=== PATIENT | male | born 1950 | race Caucasian/White ===

== ENCOUNTER → 2016-08-13 | Outpatient (CLI) | payer MEDICARE, BC ==
--- NOTE | 2016-08-13 13:40 | XR ---
EXAMINATION TYPE: XR chest 2V DATE OF EXAM: 08/13/2016 1:25 PM COMPARISON: NONE HISTORY: Shortness of breath TECHNIQUE: Frontal and lateral views of the chest are obtained. FINDINGS: Scattered senescent parenchymal changes noted. Hyperinflation compatible with COPD. There is increased density right medial lung base which may reflect developing infiltrate. Correlate clinically and progress studies are recommended. Heart size is stable. Mediastinal structures are stable and grossly unremarkable. No evidence for hilar prominence. Degenerative changes dorsal spine. IMPRESSION: 1. There is increased density right medial lung base which may reflect developing infiltrate. Correla te clinically and progress studies are recommended.
--- NOTE | 2016-08-13 13:43 | XR ---
EXAMINATION TYPE: XR shoulder complete LT DATE OF EXAM: 08/13/2016 1:25 PM CLINICAL HISTORY: pain COMPARISON: NONE TECHNIQUE: Three views of the left shoulder are obtained. FINDINGS: There is no acute fracture/dislocation evident. The acromioclavicular and glenohumeral kalpana int spaces appear mildly narrowed. The visualized ribs are intact and unremarkable. IMPRESSION: 1. There is no acute fracture or dislocation. ICD 10 NO FRACTURE, INITIAL EVALUATION
--- NOTE | 2016-08-13 13:44 | XR ---
EXAMINATION TYPE: XR cervical spine comp DATE OF EXAM: 08/13/2016 1:25 PM CLINICAL HISTORY: pain COMPARISON: NONE TECHNIQUE: Frontal, lateral, oblique, swimmers, and open mouth view of the cervical spine are obtaine d. FINDINGS: The cervical spine is visualized in its entirety from C1 thru the top of T1 level. It is s atisfactory in alignment without evidence of acute fracture or dislocation. The pre-vertebral soft t issue appears within normal limits. Moderate to severe degenerative disc space narrowing and spondylo sis extending from C4-5 through C6-7. Mild bilateral foraminal encroachment at C5-6. The C1-C2 articu lation is unremarkable on the open mouth view. IMPRESSION: No acute fracture or dislocation is seen in the cervical spine.ICD 10 NO FRACTURE, INITI AL EVALUATION
== END | disposition home or self-care (01) ==
LOC: RADXRMAIN 12:52
PROVIDERS: ATTEND Nurse Practitioner Family
DX: M54.2 Cervicalgia (principal); M25.512 Pain in left shoulder; R91.8 Other nonspecific abnormal finding of lung field
CPT/HCPCS: 71020; 72050

== ENCOUNTER → 2016-09-10 | Outpatient (CLI) | payer MEDICARE, BC ==
--- NOTE | 2016-09-11 00:13 | MR ---
EXAMINATION TYPE: MR cervical spine wo con DATE OF EXAM: 09/10/2016 8:31 PM COMPARISON: NONE HISTORY: Stenosis, Neck Pain, Lt shoulder pain TECHNIQUE: Multiplanar, multisequence images of the cervical spine were acquired. Findings Cervical vertebra show fairly normal alignment. There is narrowing at the C6-7 disc space with anteri or spurring. There is narrowing of C5-6 disc space with anterior and posterior cervical disc herniati on. There is only mild impingement on the spinal canal at C5-6. There is a small posterior see 4 [address] bulge and herniation. Cervical spinal cord has normal signal pattern. There is no evidence of tae a. There is some impingement on the right-sided neural foramen at C5-6. There is no paraspinal mass. The brainstem appears normal. IMPRESSION: There is mild to moderate posterior central and right-sided C5-6 cervical disc herniation. There is r ight-sided C5-6 neural foraminal impingement. No evidence of cord edema. Small posterior C4-5 disc bu lge. No fracture.
== END | disposition home or self-care (01) ==
LOC: RADMRIMAIN 19:30
PROVIDERS: ATTEND Neurological Surgery
DX: M99.71 Connective tissue and disc stenosis of intervertebral foramina of cervical region (principal); M50.221 Other cervical disc displacement at C4-C5 level
CPT/HCPCS: 72141

== ENCOUNTER → 2016-09-10 | Outpatient (CLI) | payer MEDICARE, BC ==
--- NOTE | 2016-09-11 00:25 | MR ---
EXAMINATION TYPE: MR shoulder LT wo con DATE OF EXAM: 09/10/2016 8:40 PM COMPARISON: NONE HISTORY: Neck Pain, Lt shoulder pain TECHNIQUE: Multiplanar, multisequence imaging of the shoulder is performed without contrast. FINDINGS: There is a shoulder joint effusion. The subscapularis tendon is intact. There is some thinning of the biceps tendon. There is mild thickening of the supraspinatus tendon at the greater tuberosity of the humerus. There is no retraction. There is spurring at the AC joint. I see no subacromial impingement at the AC joint. There is mild narrowing of the subacromial joint space. There is spurring of the gl enoid eleonora. There is mild spurring of the humeral head. I see no fracture. I see no glenoid labral t ear. IMPRESSION: There is a shoulder joint effusion. Biceps tendon is not well defined in there may be at least a part ial tear. There is thickening and increased signal in the supraspinatus tendon over the humeral head at the gre ater tuberosity consistent with tendinitis and intrasubstance tear. No retraction. Mild osteoarthriti s in the glenohumeral joint. Mild osteoarthritis at the AC joint. There are small degenerative cysts in the greater tuberosity of the humerus.
== END | disposition home or self-care (01) ==
LOC: RADMRIMAIN 19:37
PROVIDERS: ATTEND Orthopaedic Surgery
DX: M19.012 Primary osteoarthritis, left shoulder (principal); M25.812 Other specified joint disorders, left shoulder

== ENCOUNTER → 2016-09-21 | Outpatient (CLI) | payer MEDICARE, BC ==
[2016-09-21 10:04] LABS: Anisocytosis Slight; Basophils % (A) 1 %; CH 27.3; CHCM 31.6; Eosinophils # (A) 0.1 k/uL (0-0.7); Eosinophils % (A) 3 %; HCT 41.2 % (39.0-53.0); HDW 2.37; HGB 12.7 gm/dL (13.0-17.5); Luc # (Auto) 0.09; Luc % (Auto) 2; Lymphocytes # (A) 1.1 k/uL (1.0-4.8); Lymphocytes % (A) 23 %; MCH 26.8 pg (25.0-35.0); MCHC 30.9 g/dL (31.0-37.0); Mean Platelet Volume 10.9; Monocytes # (A) 0.3 k/uL (0-1.0); Monocytes % (A) 6 %; Neutrophils # (A) 3.1 k/uL (1.3-7.7); Neutrophils % (A) 66 %; RBC 4.74 m/uL (4.30-5.90); WBC 4.8 k/uL (3.8-10.6); WBC (Perox) 4.89
[2016-09-21 10:14] LABS: Carbon Dioxide 26 mmol/L (22-30); Chloride 109 mmol/L (98-107); Glucose 91 mg/dL (74-99); Sodium 145 mmol/L (137-145)
[2016-09-21 10:15] LABS: ALT 31 U/L (21-72); AST 22 U/L (17-59); Alkaline Phosphatase 68 U/L (38-126); Anion Gap 10 mmol/L; Blood Urea Nitrogen 26 mg/dL (9-20); Calcium 10.1 mg/dL (8.4-10.2); Non-African American GFR(MDRD) >60 (>60 ml/min/1.73 sqM); Total Bilirubin 0.5 mg/dL (0.2-1.3); Total Protein 7.1 g/dL (6.3-8.2)
[2016-09-21 10:16] LABS: INR 1.1 (<1.1); Partial Thromboplastin Time 25.3 sec (22.0-30.0); Prothrombin Time 11.1 sec (9.0-12.0)
== END | disposition home or self-care (01) ==
LOC: LABPAT 08:51
PROVIDERS: ATTEND Nurse Practitioner Women's Health
DX: Z01.812 Encounter for preprocedural laboratory examination (principal)
CPT/HCPCS: 80053; 85025; 85610; 85730

== ENCOUNTER 2016-10-01 06:25 | Day surgery (SDC) | payer MEDICARE, BC ==
[2016-09-28 15:33] VITALS: BMI 38.8
--- NOTE | 2016-09-30 11:24 | HP ---
DATE OF ADMISSION: CHIEF COMPLAINT: Left shoulder pain. HISTORY OF PRESENT ILLNESS: The patient is a 66-year-old, right-hand dominant, retired gentleman who presents with left shoulder pain after an injury on August 04, 2016. He has persistent pain with overhead use and at night. He has tried therapy in addition to medications with only partial temporary relief. He notes he is significantly limited because of pain. PAST MEDICAL HISTORY: Significant for diabetes, reflux disease, hypercholesterolemia and testicular cancer. PAST SURGICAL HISTORY: Significant for previous spine and neck surgery in addition to testicular cancer surgery. CURRENT MEDICATIONS: 1. Actos. 2. Aspirin. 3. Atorvastatin. 4. Flomax. 5. Lisinopril. 6. Lyrica. 7. Metformin. 8. Naprosyn. 9. Prilosec. 10. Ciprofloxacin. He denies drug allergies. FAMILY HISTORY: Significant for cancer and diabetes. SOCIAL HISTORY: Negative for current tobacco or alcohol use. A 16-point review of systems otherwise reviewed and is noncontributory. On examination, the patient is approximately 5 foot 10, 258 pounds of endomorphic habitus. HEENT exam is nonfocal. Neck is supple. On examination of his left shoulder, he is tender about the anterior subacromial space. He has moderate subacromial crepitus. Active range of motion, forward elevation 70 degrees, external rotation with arm at the side 50 degrees, internal rotation to L4. Passively, I am able to forward elevate him to 160 degrees. Motor strength is 4+/5 for external rotation with arms at side and 4+/5 for abduction. Impingement test, Neer test, speed tests are positive. His distal neurovascular exam otherwise appears be intact in the left upper extremity. MRI report for the left shoulder from 09/10/2016 shows a large effusion in addition to possible partial biceps rupture. There is also a questionable anterior supraspinatus tendon tear. IMPRESSION: 1. Left shoulder symptomatic rotator cuff tear/impingement. 2. Partial tear left shoulder longhead of the biceps. 3. Diabetes. RECOMMENDATION: I talked to the patient at length regarding his treatment options. At this point he is quite symptomatic despite conservative measures. After thorough discussion, he opts to proceed with surgery. We will plan to proceed with arthroscopic evaluation with probable subacromial decompression, rotator cuff repair versus debridement, and possible biceps tenotomy. We will likely perform that as an outpatient procedure. The patient underwent preoperative medical evaluation by Dr. Macias.
[~2016-10-01 06:25] MED LIST: DEXAMETHASONE SOD PHOSPHATE 10 MG/ML 1 ML VIAL IV ONE; LACTATED RINGERS 1,000 ML IV SCH; MIDAZOLAM 2 MG/2 ML VIAL IV PRN; ONDANSETRON 4 MG/2 ML VIAL IVP ONE; ceFAZolin 2 GM in SODIUM CHLORIDE 0.9% 100 ML IVPB ONE; fentaNYL (PF) 50 MCG/ML 20 ML VIAL IVP PRN
[2016-10-01] MEDS ORDERED: LIDOCAINE 1% 20 ML VIAL (10MG/ML) FOR IV START INTRADERMA ONE (06:54)
[2016-10-01] MEDS ORDERED: fentaNYL (PF) 50 MCG/ML 2 ML AMP IV ONE (07:03)
[2016-10-01 07:04] LABS: Glucose,Whole Blood 101 mg/dL (75-99)
[2016-10-01] MEDS ORDERED: fentaNYL (PF) 50 MCG/ML 2 ML AMP ONE (08:08)
[2016-10-01] MEDS ORDERED: MIDAZOLAM 2 MG/2 ML VIAL ONE (08:08)
[2016-10-01] MEDS ORDERED: PROPOFOL 10 MG/ML 20 ML VIAL IV ONE (08:08)
[2016-10-01] MEDS ORDERED: LIDOCAINE 1% INJ 10MG/ML (20 ML MDV) ONE (08:08)
[2016-10-01] MEDS ORDERED: SUCCINYLCHOLINE CHLORIDE 100 MG/5 ML SYR IV ONE (08:08)
[2016-10-01] MEDS ORDERED: LIDOCAINE 2%-EPI 1:100,000 20 ML VIAL ONE (08:08)
[2016-10-01] MEDS ORDERED: ePHEDrine 50 MG/ML 1 ML AMP ONE (08:08)
[2016-10-01] MEDS ORDERED: ROPIVACAINE 5 MG/ML 30 ML VIAL ONE (08:08)
--- NOTE | 2016-10-01 09:30 | P.OP ---
Date of Procedure: 10/01/16 Preoperative Diagnosis: Left shoulder rotator cuff tear/impingement Postoperative Diagnosis: Left shoulder 1 cm rotator cuff tear/superior labral tear/posterior labral tear Procedure(s) Performed: Left shoulder arthroscopic subacromial decompression/rotator cuff repair/ superior labral debridement/posterior labral debridement Implants: Arthrex 5.5 mm swivel lock anchor 1 Anesthesia: luis [place] Surgeon: Pedro Luis Wyatt [employer] Maintenance Inspector #1: Nuno Choudhary Estimated Blood Loss (ml): 10 Pathology: none sent Condition: stable Disposition: PACU Indications for Procedure: Patient's a 66-year-old gentleman presents with progressive left shoulder pain after previous injury despite conservative measures. A discussion of the risks and benefits of operative intervention versus continued conservative measures was made with the patient. He opted to proceed with surgery. Operative risks to include infection, neurovascular injury, development of blood clots, possible postoperative stiffness, possible tendon rerupture need for subsequent procedures was discussed. Informed consent was obtained. Operative Findings: As below Description of Procedure: The patient was brought to the operating room, and after induction of general anesthesia was placed into a beachchair position. Bony prominences were appropriately padded. The left upper extremity was prepped and draped in normal fashion. I examined the left shoulder. There was no gross block to passive motion. The bony outlines the acromion, distal clavicle, and coracoid process were outlined with a skin marker. The glenohumeral joint was inflated with 50 mL of saline utilizing a spinal needle from posterior approach. A posterior portal was made through a 5 mm skin incision 1 cm medial and inferior to the posterior lateral border of the acromion. A blunt trocar was used to easily into the joint. Diagnostic arthroscopy was performed. An anterior portal was made through a 5 mm skin incision lateral to the coracoid process entering the joint above the subscapularis tendon. The long head of biceps appeared to have previously been ruptured off the superior labrum. There was a superior labral tear that was debrided back to stable base with a motorized shaver. A posterior labral tear was also noted and was debrided back to stable base with a motorized shaver. The anterior labrum was intact. Minimal degenerative changes involving the glenoid and humeral head were noted. On inspection the rotator cuff, a full-thickness tear involving the anterior aspect the supraspinatus tendon was noted with minimal retraction. The posterior portion the cuff appeared to be intact. The arthroscope was then placed into the subacromial space. A lateral portal was made through a 5 mm skin incision 2 cm inferior to the anterolateral border of the acromion. The soft tissue on the undersurface the acromion was debrided with motorized shaver and with electrocautery clearly defining the anterior medial and lateral borders. The distal clavicle was also identified. An anterior inferior acromioplasty is performed with a motorized nerissa starting anterolateral, then extending this posteriorly, then extending this medially. I converted to a flat acromion. This was verified from the posterior and lateral viewing portals. The coracoacromial ligament was detached from the anterior acromion with electrocautery. Attention was then paid towards the rotator cuff. The bursal tissue was hypertrophic and debrided with motorized shaver. The rotator cuff tear involving the anterior aspect the supraspinatus was defined. This measured proximal and 1 cm. There is no real retraction. It was easily mobilized back to the greater tuberosity. The greater tuberosity was lightly decorticated utilizing a motorized nerissa creating a bleeding bony surface for reattachment. A scorpion suture passer was then used to pass a #2 fiber tape through the rotator cuff in addition a #2 fiber length was placed. A lateral anchor was then placed after appropriate soft tissue tensioning utilizing the appropriate starting awl. A 5.5 mm swivel lock anchor was inserted. Good purchase was obtained. Final arthroscopic view showed adequate evangelical of the footprint with compression. The portals were closed with Steri-Strips. A sterile dressing was applied in addition to a brace. The patient was awoken from general anesthesia and transferred to the recovery room in good condition. Blood loss was estimated at 10 mL. No complications were incurred. Sponge and needle counts were correct at the end the case.
[2016-10-01 09:48] VITALS: TEMP 97.2
[2016-10-01 10:45] LABS: Glucose,Whole Blood 146 mg/dL (75-99)
[2016-10-01 10:58] VITALS: RESP 18
[2016-10-01 12:14] VITALS: BP 128/73; PULSE 68
== END 2016-10-01 12:48 | disposition home or self-care (01) ==
LOC: OR 06:25
PROVIDERS: ATTEND Orthopaedic Surgery
DX: M75.122 Complete rotator cuff tear or rupture of left shoulder, not specified as traumatic (principal); S43.402A Unspecified sprain of left shoulder joint, initial encounter; S46.112A Strain of muscle, fascia and tendon of long head of biceps, left arm, initial encounter; X58.XXXA Exposure to other specified factors, initial encounter; M25.412 Effusion, left shoulder; M75.42 Impingement syndrome of left shoulder; E11.21 Type 2 diabetes mellitus with diabetic nephropathy; I45.10 Unspecified right bundle-branch block; I10 Essential (primary) hypertension; K21.9 Gastro-esophageal reflux disease without esophagitis; E78.00 Pure hypercholesterolemia, unspecified; E78.5 Hyperlipidemia, unspecified; Z79.1 Long term (current) use of non-steroidal anti-inflammatories (NSAID); Z79.4 Long term (current) use of insulin; Z79.84 Long term (current) use of oral hypoglycemic drugs; Z79.899 Other long term (current) drug therapy; Z88.1 Allergy status to other antibiotic agents; Z88.5 Allergy status to narcotic agent; Z85.47 Personal history of malignant neoplasm of testis
CPT/HCPCS: 64415; 29827; 29826; C1713 ×3; C1894; J2250; J1100; J0690; J2405; J2001; J3010; J2795; J0330; J2704; 99283

== ENCOUNTER 2016-10-01 14:41 | Emergency (ER) | payer MEDICARE, BC ==
[2016-10-01 14:48] VITALS: PULSE 87
--- NOTE | 2016-10-01 16:05 | ED ---
General Adult HPI - General Chief complaint: Skin/Abscess/Foreign Body Stated complaint: Post surgery bleeding Time Seen by Provider: 10/01/16 15:06 Source: patient, family, RN notes reviewed Mode of arrival: ambulatory Limitations: no limitations - History of Present Illness Initial comments: Chief complaint history of present illness a 66-year-old male who had left shoulder surgery early this morning. After use was sent home he noticed a fair amount of bleeding through the bandages in into his T-shirt and down the top of his abdomen. He return emergency room. The bandages remember removed. Pressure was applied less bleeding noted afterwards. - Related Data Home Medications Medication Instructions Recorded Confirmed Atorvastatin [Lipitor] 20 mg PO HS 01/07/14 10/01/16 Exenatide [Byetta] 10 mcg INJ BID 01/07/14 10/01/16 Methocarbamol [Robaxin] 500 mg PO BID 01/07/14 10/01/16 Multivitamin [Men's Multi-Vitamin] 1 each PO DAILY 01/07/14 10/01/16 [place]-3 Acid Ethyl Esters [Lovaza] 4 gm PO DAILY 01/07/14 10/01/16 Pioglitazone HCl 45 mg PO DAILY 01/07/14 10/01/16 Pregabalin [Lyrica] 150 mg PO BID 01/07/14 10/01/16 metFORMIN HCL 1,000 mg PO BID 01/07/14 10/01/16 Fenofibric Acid (Choline) 135 mg PO DAILY 04/05/14 10/01/16 [Trilipix] Fluticasone Propionate [Flonase] 50 mcg NASAL HS 04/05/14 10/01/16 Tamsulosin HCl [Flomax] 0.4 mg PO DAILY 04/15/14 10/01/16 Finasteride [Proscar] 5 mg PO DAILY 02/25/16 10/01/16 Naproxen 500 mg PO Q12HR PRN 02/25/16 10/01/16 L.acidoph,Paracasei, B.lactis 1 each PO DAILY 05/06/16 10/01/16 [Probiotic] Ferrous Sulfate [Iron (65 MG 325 mg PO DAILY 06/07/16 10/01/16 Elemental)] Ascorbic Acid [Vitamin C] 500 mg PO DAILY 09/28/16 10/01/16 Allergies Allergy/AdvReac Type Severity Reaction Status Date / Time ciprofloxacin [From Cipro] Allergy Rash/Hives Verified 10/01/16 15:58 ciprofloxacin HCl Allergy Rash/Hives Verified 10/01/16 15:58 [From Cipro] hydrocodone bitartrate Allergy bladder Verified 10/01/16 15:58 [From Ney] issues opioids Allergy urinary Uncoded 10/01/16 14:48 and bowel problems Review of Systems ROS Statement: Those systems with pertinent positive or pertinent negative responses have been documented in the HPI. Review of systems patient has no complaints other than the bleeding from his left shoulder. Past medical problems significant for diabetes mellitus, hyperlipidemia, hypertension, osteoarthritis, prostate disorder diabetic retinopathy. Previous surgeries back surgery septoplasty colonoscopy the patient's. ALLERGIES to Cipro, hydrocodone. ROS Other: All systems not noted in ROS Statement are negative. Past Medical History Past Medical History: Cancer, Diabetes Mellitus, Eye Disorder, Hearing Disorder / Deafness, Hyperlipidemia, Hypertension, Osteoarthritis (OA), Prostate Disorder Additional Past Medical History / Comment(s): diabetic retinopathy, UNHEALING surgical wound lower back, [facility] AND [facility], hx testicular cancer History of Any Multi-Drug Resistant Organisms: MRSA Date of last positivie culture/infection: 06/08/16 MDRO Source:: BACK Past Surgical History: Back Surgery, Orthopedic Surgery Additional Past Surgical History / Comment(s): Septoplasty, lumbar spinal stenosis, 06-08-16 EXCISION OF OPEN BACK WOUND/FLAP CLOSURE. COLONOSCOPY Past Anesthesia/Blood Transfusion Reactions: Previous Problems w/ Anesthesia Additional Past Anesthesia/Blood Transfusion Reaction / Comment(s): Post operative urinary retention Past Psychological History: No Psychological Hx Reported Smoking Status: Never smoker Past Alcohol Use History: None Reported, Rare Additional Past Alcohol Use History / Comment(s): QUIT SMOKING APPROX 2008, STARTED AT APPROX AGE 13. He denies any medical marijuana, marijuana, street drug or alcohol use. He lives at home with his . He is retired from [employer]. Past Drug Use History: None Reported - Past Family History Father Family Medical History: Cancer Mother Family Medical History: Cancer Additional Family Medical History / Comment(s): . Brother(s) Family Medical History: Diabetes Mellitus father Family Medical History: Cancer Additional Family Medical History / Comment(s): . General Exam - General Exam Comments Initial Comments: The patient's only complaint is bleeding from to sites on his left shoulder where he had surgery just hours ago. Clots are noted. These were removed. Pressure was applied. Less bleeding noted. The posterior incision site probably a small vein bleeding on the edge of the wound. This was sutured closed. No bleeding from the front or lateral incision wounds. The Steri- Strips reapplied to the anterior shoulder wound. Patient was observed no bleeding was noted patient was discharged with new bandages placed on firmly. With arm in sling. Patient advised to call the on-call orthopedic line if he is eye difficulties or return emergency room. Neurovascular status to the hands intact. Vital signs show temperature 98.2 pulse 87 respiratory rate 20 pulse ox 97% room air blood pressure 169/72. Elevated systolic most likely due to the pain associated with recent surgery. Limitations: no limitations Course Vital Signs 10/01/16 14:46 Temperature 98.2 F Pulse Rate 87 Respiratory 20 Rate Blood Pressure 169/72 O2 Sat by Pulse 97 Oximetry Medical Decision Making - Medical Decision Making Dr. Treadwell, orthopedic surgery saw the patient in the emergency room. Patient be discharged to follow up in office. Disposition Clinical Impression: Postoperative bleeding from incision Disposition: HOME SELF-CARE Condition: Stable Additional Instructions: Leave pressure bandage intact until you see your orthopedic surgeon. Call the on-call number of the right difficulty problems or return emergency room as needed Time of Disposition: 16:07
[2016-10-01 16:43] VITALS: BP 142/67; RESP 18; TEMP 97.5
== END 2016-10-01 16:43 | disposition home or self-care (01) ==
LOC: EC 14:41
DX: M96.831 Postprocedural hemorrhage of a musculoskeletal structure following other procedure (principal); M19.90 Unspecified osteoarthritis, unspecified site; E11.319 Type 2 diabetes mellitus with unspecified diabetic retinopathy without macular edema; I10 Essential (primary) hypertension; E78.5 Hyperlipidemia, unspecified; N42.9 Disorder of prostate, unspecified; Z79.84 Long term (current) use of oral hypoglycemic drugs; Z79.899 Other long term (current) drug therapy; Z79.51 Long term (current) use of inhaled steroids; Z88.1 Allergy status to other antibiotic agents; Z88.5 Allergy status to narcotic agent; Z87.891 Personal history of nicotine dependence; Z85.47 Personal history of malignant neoplasm of testis
CPT/HCPCS: 99283

== ENCOUNTER → 2017-10-13 | Outpatient (CLI) | payer MEDICARE, BC ==
--- NOTE | 2017-10-13 13:06 | XR ---
EXAMINATION TYPE: XR Hip Complete RT DATE OF EXAM: 10/13/2017 COMPARISON: NONE HISTORY: Right hip pain low back pain TECHNIQUE: 2 view right hip FINDINGS: Femoral head articulates with the acetabulum. Joint spaces preserved. No acute fractures ar e evident. Some degenerative changes noted at the right sacroiliac joint space. IMPRESSION: 1. No acute fractures right hip
--- NOTE | 2017-10-13 13:08 | XR ---
EXAMINATION TYPE: XR lumbosacral spine min 4V DATE OF EXAM: 10/13/2017 COMPARISON: NONE HISTORY: Back pain right hip pain TECHNIQUE: Five-view lumbar spine FINDINGS: There 5 lumbar-type type vertebral bodies. Pedicles are intact. Loss of disc height and spo ndylosis is present especially L2-L3. Facet degenerative changes are present. Degenerative disc burns es in addition to L2-3 are present L4-5 L5-S1 due to mild degree L3-4. IMPRESSION: 1. Degenerative disc changes especially L2-3 and L4-5. 2. Scoliosis. 3. Spondylosis
== END | disposition home or self-care (01) ==
LOC: RADXRMAIN 11:45
PROVIDERS: ATTEND Family Medicine
DX: M47.816 Spondylosis without myelopathy or radiculopathy, lumbar region (principal); M41.9 Scoliosis, unspecified; M25.551 Pain in right hip
CPT/HCPCS: 72110; 73502

== ENCOUNTER → 2018-01-02 | Outpatient (CLI) | payer MEDICARE, BC ==
--- NOTE | 2018-01-03 00:11 | MR ---
EXAMINATION TYPE: MR lumbar spine wo/w con DATE OF EXAM: 01/02/2018 COMPARISON: NONE HISTORY: Low back pain Right Lower Exteremity pain and Numbness, Gadavist 12.5, Previous MRI on PACS TECHNIQUE: Multiplanar, multisequence images of the lumbar spine were acquired utilizing 12.5 mL intravenous Jeremiah avist gadolinium contrast. There is multilevel laminectomy defect in the lower lumbar spine at L3-L4. There is posterior disc he rniation at L2-3 L3-4 L4-5 L5-S1. There is subcutaneous mixed signal posteriorly at the surgery site. There is some epidural enhancement around the thecal sac posteriorly at the laminectomy levels consi stent with epidural scarring. There is a few millimeter anterior subluxation of L4 in relation L5. Th ere is a few millimeter anterior subluxation of L5 in relation S1. There is no compression fracture. There is degenerative disc space narrowing throughout the lumbar spine. There is no paraspinal mass. IMPRESSION: Posterior surgery. Epidural scarring. There is improvement in the multilevel bony spinal stenosis com pared to the old exam before surgery on 12/20/2015. Multilevel posterior lumbar disc herniation. Degen erative first-degree L4-5 and L5-S1 spondylolisthesis is stable compared to old exam.
--- NOTE | 2018-01-03 11:53 | ECHOF ---
Referral Reason:I35.0 AORTIC VALVE STENOSIS MEASUREMENTS -------- HEIGHT: 170.2 cm WEIGHT: 123.4 kg BP: 166/71 RVIDd: 3.1 cm (< 3.3) IVSd: 1.3 cm (0.6 - 1.1) LVIDd: 5.2 cm (3.9 - 5.3) LVPWd: 1.5 cm (0.6 - 1.1) IVSs: 1.7 cm LVIDs: 3.6 cm LVPWs: 1.7 cm LAESV Index (A-L): 23.18 ml/m Ao Diam: 3.6 cm (2.0 - 3.7) AV Cusp: 1.8 cm (1.5 - 2.6) LA Diam: 3.8 cm (2.7 - 3.8) MV EXCURSION: 20.477 mm (> 18.000) MV EF SLOPE: 57 mm/s (70 - 150) EPSS: 1.0 cm MV E Ezequiel: 1.23 m/s MV DecT: 284 ms MV A Ezequiel: 0.87 m/s MV E/A Ratio: 1.41 AV maxP.92 mmHg AV meanP.44 mmHg RAP: 5.00 mmHg RVSP: 30.16 mmHg FINDINGS -------- Sinus rhythm. This was a technically difficult study with suboptimal views. The left ventricular size is normal. There is moderate concentric left ventricular hypertrophy. O verall left ventricular systolic function is normal with, an EF between 55 - 60 %. The right ventricle is mildly enlarged. Normal LA size by volume 22+/-6 ml/m2. The right atrium is normal in size. 3ml of Lumason was utilized for enhancement of images. There is moderate aortic valve sclerosis. There is no evidence of aortic regurgitation. There is mild aortic stenosis present. Peak/mean gradient across the Aortic Valve is 19.92mmHg / 11.44mmHg. Mild mitral annular calcification present. There is trace to mild mitral regurgitation. Mild tricuspid regurgitation present. Right ventricular systolic pressure is normal at < 35 mmHg. There is no evidence of pulmonary hypertension. The pulmonic valve was not well visualized. There is no pulmonic regurgitation present. The aortic root size is normal. Normal inferior vena cava with normal inspiratory collapse consistent with estimated right atrial pre ssure of 5 mmHg. There is no pericardial effusion. CONCLUSIONS -------- 1. Sinus rhythm. 2. This was a technically difficult study with suboptimal views. 3. The left ventricular size is normal. 4. There is moderate concentric left ventricular hypertrophy. 5. Overall left ventricular systolic function is normal with, an EF between 55 - 60 %. 6. The right ventricle is mildly enlarged. 7. Normal LA size by volume 22+/-6 ml/m2. 8. 3ml of Lumason was utilized for enhancement of images. 9. There is moderate aortic valve sclerosis. 10. There is mild aortic stenosis present. 11. Peak/mean gradient across the Aortic Valve is 19.92mmHg / 11.44mmHg. 12. Mild mitral annular calcification present. 13. There is trace to mild mitral regurgitation. 14. Mild tricuspid regurgitation present. 15. Right ventricular systolic pressure is normal at < 35 mmHg. 16. The pulmonic valve was not well visualized. 17. There is no pulmonic regurgitation present. 18. The aortic root size is normal. 19. There is no pericardial effusion. PROGRAM INSTRUCTOR: Dylan Pop RDCS
== END | disposition home or self-care (01) ==
LOC: RADECHMAIN 15:19
PROVIDERS: ATTEND Family Medicine
DX: I08.3 Combined rheumatic disorders of mitral, aortic and tricuspid valves (principal); M48.061 Spinal stenosis, lumbar region without neurogenic claudication; M51.27 Other intervertebral disc displacement, lumbosacral region; M43.17 Spondylolisthesis, lumbosacral region; L90.5 Scar conditions and fibrosis of skin; Z98.890 Other specified postprocedural states; Z88.1 Allergy status to other antibiotic agents; Z88.5 Allergy status to narcotic agent; Z88.6 Allergy status to analgesic agent
CPT/HCPCS: 82565; 72158; 36415; C8929; A9581; Q9950; 93306

== ENCOUNTER → 2018-03-08 | Outpatient (CLI) | payer MEDICARE, BC ==
[2018-03-07 14:08] VITALS: BMI 42.9
[2018-03-08 14:29] VITALS: BP 116/72; PULSE 65; RESP 16; TEMP 98
--- NOTE | 2018-03-08 14:43 | P.PAINCN ---
History of Present Illness - Reason for Consult Consult date: 03/08/18 - History of Present Illness This is 67 years old male with a chronic history of severe low back pain with radiation to the right lower extremity, associated with numbness and tingling sensation, pain is constant and increases with any activity, interfere with his quality of life, patient had 2 back surgery the first one was done in 1985, and he did fairly well after the surgery, and a second surgery done in 2015 which was lumbar decompression, which was complicated with infection in the lumbar spine, and he had the antibiotic therapy , the incision amy appropriately, and he continued to have severe back pain with radiation to the right lower extremiy, currently , he had no fever or night sweats and he denies any change in the bowel movement or urination, he tried physical therapy with some benefit , and he is currently on naproxen and Robaxin and Lyrica which is helping him to some degree to control his pain, he denies any side effect of the medication Past Medical History Past Medical History: Cancer, Diabetes Mellitus, Eye Disorder, Hearing Disorder / Deafness, Hyperlipidemia, Hypertension, Osteoarthritis (OA), Prostate Disorder Additional Past Medical History / Comment(s): diabetic retinopathy, UNHEALING surgical wound lower back-healed, hx testicular cancer-radiation txs History of Any Multi-Drug Resistant Organisms: MRSA Year Discovered:: 06/08/16 MDRO Source:: BACK Past Surgical History: Back Surgery, Orthopedic Surgery Additional Past Surgical History / Comment(s): Septoplasty, lumbar spinal stenosis, 06-08-16 EXCISION OF OPEN BACK WOUND/FLAP CLOSURE,testicle remove. COLONOSCOPY Past Anesthesia/Blood Transfusion Reactions: Previous Problems w/ Anesthesia Additional Past Anesthesia/Blood Transfusion Reaction / Comm: Post operative urinary retention Smoking Status: Former smoker - Past Family History Father Family Medical History: Cancer Mother Family Medical History: Cancer Additional Family Medical History / Comment(s): . Brother(s) Family Medical History: Diabetes Mellitus father Family Medical History: Cancer Additional Family Medical History / Comment(s): . Medications and Allergies Home Medications Medication Instructions Recorded Confirmed Type Atorvastatin [Lipitor] 20 mg PO HS 01/07/14 03/08/18 History Methocarbamol [Robaxin] 500 mg PO BID 01/07/14 03/08/18 History Multivitamin [Men's Multi-Vitamin] 1 tab PO DAILY 01/07/14 03/08/18 History Lawai-3 Acid Ethyl Esters [Lovaza] 4 gm PO DAILY 01/07/14 03/08/18 History Pioglitazone HCl 45 mg PO DAILY 01/07/14 03/08/18 History Pregabalin [Lyrica] 150 mg PO BID 01/07/14 03/08/18 History metFORMIN HCL 1,000 mg PO BID 01/07/14 03/08/18 History Fenofibric Acid (Choline) 135 mg PO HS 04/05/14 03/08/18 History [Trilipix] Fluticasone Propionate [Flonase] 1 spray EA NOSTRIL HS 04/05/14 03/08/18 History Tamsulosin HCl [Flomax] 0.4 mg PO DAILY 04/15/14 03/08/18 History Finasteride [Proscar] 5 mg PO HS 02/25/16 03/08/18 History Naproxen 500 mg PO DAILY PRN 02/25/16 03/08/18 History L.acidoph,Paracasei, B.lactis 1 cap PO DAILY 05/06/16 03/08/18 History [Probiotic] Ferrous Sulfate [Iron (65 MG 325 mg PO HS 06/07/16 03/08/18 History Elemental)] Ascorbic Acid [Vitamin C] 500 mg PO DAILY 09/28/16 03/08/18 History Cholecalciferol [Vitamin D3] 1,000 unit PO DAILY 03/08/18 03/08/18 History Liraglutide [Victoza 2-Tim] 1.8 mg SQ DAILY 03/08/18 03/08/18 History Lisinopril [Zestril] 10 mg PO DAILY 03/08/18 03/08/18 History Magnesium Gluconate [Magonate] 500 mg PO DAILY 03/08/18 03/08/18 History Melatonin 3 mg PO HS 03/08/18 03/08/18 History Omeprazole 20 mg PO DAILY 03/08/18 03/08/18 History Allergies Allergy/AdvReac Type Severity Reaction Status Date / Time ciprofloxacin [From Cipro] Allergy Rash/Hives Verified 03/08/18 14:07 ciprofloxacin HCl Allergy Rash/Hives Verified 03/08/18 14:07 [From Cipro] hydrocodone bitartrate Allergy constipation Verified 03/08/18 14:07 [From [place]] and unable to urinate opioids Allergy urinary Uncoded 03/08/18 14:07 and bowel problems Physical Exam Vitals: Vital Signs Temp Pulse Resp BP Pulse Ox 03/08/18 14:25 98 F 65 16 116/72 98 Social history : not smoker , NO ETOH , NO Illegal drugs use Review of Systems : 1- Constitutional : no chills , no fever , no night sweats , 2- Ears : no ear discharge , no change in hearing 3-Nose, Mouth ,Throat ; no bleeding gums, no sore throat , no epistaxis , 4-Cardiovascular : Denies chest pain, , no orthopnea , no palpitation 5-Respiratory : Denies cough , no dyspnea , no hemoptysis 6-Gastrointestinal :, no change in bowel habits , no coffee- ground emesis . 7-Genitourinary : No hematuria , no discharge , no incontinence, 8-Musculoskeletal : No gait dysfunction , report low back pain , 9- Neurological : no ataxia , no tremor , no sezure , 10-Psychatric , no suicidal ideation no hallucination 11- Endocrine : no cold intolerence , no polyuria , no polydypsia , 12-Hematologic : no easy bleeding , no easy brusing , 13-Allergic / immunology : no angioedema , no wheezing ,no allergic rhinitis 14-Integumentary : no brttle nails , no change hair / nails , no foot/leg ulcers . Physical Examinations : 1-Constitutional : Cooperative , not in acute distress . 2-HEENT : nech ; supple , no Lymphadenopathy , no Thyromegaly , :eyes , no icterus, no photophobia . ENT : , normal oropharynx , no Thrush 3- Respiratory : Chest clear to auscultations Bilaterally , no wheezing . 4- Cardiovascular : regular rate and rhythem , S1 , S2 , no S3 , no S4. 5- Gastrointestinal: abdomen soft no tenderness , no organomegally . 6- Genitourinary : Defferred . 7-Integumentary : No cellulitis , no ulcers , normal skin turgor , no cyanotic . 8- neurologic : Cranial nerve II to XII intact , no focal neurological deffecit 9-psychatric : alert , oriented X 3 , appropriate affect , intact judgment and insight . 10-Lymphatic : no Lymphadenopathy. 11- musculoskeltal: Ambulate using a cane Lumber spine moter stegnth lower extremities ,thigh and legs 5/5 Right side , 5/5 Left side deep tendon reflexes : normal Knee Jerk , normal ankle Jerk positive lumber facet Loading Test Range of motion of the lumbar spine Flexion 30 degrees, extension 10 degrees strait leg raising test , positive at 30 degree right side and negative on the left side Fabere test positive RT and negative LT . Lumbar spine incision healed appropriately there is, no erythema ,and no discharge Results Comments: MRI of the lumbar spine multilevel posterior disc herniation at the L2-3/L3/L4 5 /L5-S1, and post surgical changes Assessment and Plan Plan: Assessment and plan=1-lumbar radiculopathy right-sided L3 4 L4 5 distribution 2-lumbar disc herniation. 3-failed back surgery syndrome lumbar area. Patient could benefit from right-sided transforaminal epidural steroid injection at L3-4 /L4 5 under fluoroscopy guidance Procedure risk and benefits and alternatives discussed with the patient he agreed with the preceding Time with Patient: Greater than 30 PQRS Measure Charge Sheet Measure #130: Documentation of Current Meds in Medical Chart: Patient's medications documented in chart Measure #226: Tobacco Use: Screen & Cessation Intervention: Pt not a tobacco user Measure #111: Pneumonia Vaccination: Pneumococcal vaccine NOT administered or previously given Measure #47: Advance Care Plan: Advance care planning discussed & documented, pt chose/unable to give Measure #412: Opioid Treatment Agreement: No documentation of signed opioid treatment agreement Measure #408: Opioid Therapy Follow-up Evaluation: Patient had NO f/u eval minimum every 3 months during opioid therapy Measure #317: Preventitive Care & Scrn High Bld Press & F/U: Pre-hypertensive or hypertensive BP documented, pt will f/u with PCP Measure #128: Body Mass Index (BMI) Screening & Follow-up: BMI documented ABOVE normal parameters - f/u documented Measure #131: Pain Assessment & Follow-up: Pain positive & plan documented, Follow-up scheduled Measure #431: Unhealthy Alcohol Use Preventative Care & Scrn: Patient not identified as an unhealthy alcohol user PQRS Narrative: Smoking Status Former smoker Do You Want the Pneumonia No Vaccine AT THIS TIME? Blood Pressure 116/72 Pain Intensity [Right Lower 8 Back] Scale Used Numeric (1 - 10) Home Medications: Ambulatory Orders Atorvastatin [Lipitor] 20 mg PO HS 01/07/14 Methocarbamol [Robaxin] 500 mg PO BID 01/07/14 Multivitamin [Men's Multi-Vitamin] 1 tab PO DAILY 01/07/14 Lawai-3 Acid Ethyl Esters [Lovaza] 4 gm PO DAILY 01/07/14 Pioglitazone HCl 45 mg PO DAILY 01/07/14 Pregabalin [Lyrica] 150 mg PO BID 01/07/14 metFORMIN HCL 1,000 mg PO BID 01/07/14 Fenofibric Acid (Choline) [Trilipix] 135 mg PO HS 04/05/14 Fluticasone Propionate [Flonase] 1 spray EA NOSTRIL HS 04/05/14 Tamsulosin HCl [Flomax] 0.4 mg PO DAILY 04/15/14 Finasteride [Proscar] 5 mg PO HS 02/25/16 Naproxen 500 mg PO DAILY PRN 02/25/16 L.acidoph,Paracasei, B.lactis [Probiotic] 1 cap PO DAILY 05/06/16 Ferrous Sulfate [Iron (65 MG Elemental)] 325 mg PO HS 06/07/16 Ascorbic Acid [Vitamin C] 500 mg PO DAILY 09/28/16 Cholecalciferol [Vitamin D3] 1,000 unit PO DAILY 03/08/18 Liraglutide [Victoza 2-Tim] 1.8 mg SQ DAILY 03/08/18 Lisinopril [Zestril] 10 mg PO DAILY 03/08/18 Magnesium Gluconate [Magonate] 500 mg PO DAILY 03/08/18 Melatonin 3 mg PO HS 03/08/18 Omeprazole 20 mg PO DAILY 03/08/18
== END | disposition home or self-care (01) ==
LOC: PNWHC3 13:15
PROVIDERS: ATTEND Specialist
DX: G89.29 Other chronic pain (principal); M54.5 Low back pain; M96.1 Postlaminectomy syndrome, not elsewhere classified; M51.16 Intervertebral disc disorders with radiculopathy, lumbar region; E11.319 Type 2 diabetes mellitus with unspecified diabetic retinopathy without macular edema; E78.5 Hyperlipidemia, unspecified; I10 Essential (primary) hypertension; M19.90 Unspecified osteoarthritis, unspecified site; Z98.890 Other specified postprocedural states; Z79.891 Long term (current) use of opiate analgesic; Z85.47 Personal history of malignant neoplasm of testis; Z79.899 Other long term (current) drug therapy; Z79.84 Long term (current) use of oral hypoglycemic drugs; Z88.1 Allergy status to other antibiotic agents; Z88.6 Allergy status to analgesic agent; Z87.891 Personal history of nicotine dependence
CPT/HCPCS: 99211

== ENCOUNTER 2018-03-21 06:02 | Day surgery (SDC) | payer MEDICARE, BC ==
[2018-03-20 08:12] VITALS: BMI 41.5
[~2018-03-21 06:02] MED LIST changes: -DEXAMETHASONE SOD PHOSPHATE 10 MG/ML 1 ML VIAL IV ONE; -MIDAZOLAM 2 MG/2 ML VIAL IV PRN; -ONDANSETRON 4 MG/2 ML VIAL IVP ONE; -ceFAZolin 2 GM in SODIUM CHLORIDE 0.9% 100 ML IVPB ONE; -fentaNYL (PF) 50 MCG/ML 20 ML VIAL IVP PRN
[2018-03-21 06:48] VITALS: TEMP 97.9
[2018-03-21] MEDS ORDERED: LIDOCAINE 1% 20 ML VIAL (10MG/ML) FOR IV START INTRADERMA ONE (06:48)
[2018-03-21 06:53] LABS: Glucose,Whole Blood 95 mg/dL (75-99)
--- NOTE | 2018-03-21 07:29 | P.PCN ---
Date of Procedure: 03/21/18 Procedure(s) Performed: PREOPERATIVE DIAGNOSIS: Lumbar radiculopathy in right L3-4 ,L4-5 distribution 2-lumbar herniated disc disease. 3-Failed Back surgery syndrome lumbar area POSTOPERATIVE DIAGNOSIS: Same as preoperative diagnosis PROCEDURE 1. Transforaminal epidural steroid injection under fluoroscopic guidance at right L3-4 , L4-5 level. 2. Lumbar epidurogram : ANESTHESIA: Local with 1% lidocaine 3 ml , moderate sedation with intravenous Versed 2 mg . EBL: Minimal PROCEDURE INDICATION: The patient with low back pain and radiculopathy symptoms unresponsive to conservative treatment. PROCEDURE DESCRIPTION / TECHNIQUE: The patient was seen and identified in the preoperative area. Risks, benefits , complications, and alternatives were discussed with the patient. The patient agreed to proceed with the procedure and signed the consent. IV was started, and vital signs were stable. Patient was taken to the OR and time out was completed. The patient was placed in the prone position on procedure table and a pillow was placed under the abdomen to reduce lumbar lordosis. The lumbosacral area was prepped and draped in the usual sterile fashion. Critical pause was taken. Vital signs were closely monitored during the procedure. Conscious sedation was used during the procedure to decrease patients anxiety. Using oblique fluoroscopy, the chin of the ``Travis dog at right L3-4 level was identified, and the skin and deeper tissues just below was localized with 1% lidocaine. Subsequently, a 22-gauge 5 inches inch spinal needle was advanced under a tunneled view fluoroscopic guidance just underneath the chin of the ``Travis dog at the right L3-4 . Under lateral fluoroscopy, the needle was then advanced to the posterior border of the L3-4 interforaminal space. After negative aspiration of CSF and blood and with no paresthesias, 1 mL Isovue 200 contrast dye was injected excellent epidurogram and outlining of the nerve root Subsequently, 2 mL of block solution containing 40 mg Depomedrol , and 1 mL of Lidocaine 1% was injected. Needle was removed and the same procedure was repeated at the right L4-5 level. At the end of the procedure, skin was cleansed, and bandages were applied. COMPLICATIONS:none DISPOSITION / PLANS: The patient was placed in a supine position and transferred to the recovery area in a stable condition for observation. There was no evidence of lower extremity motor or sensory deficit after the procedure. Patient was discharged from the recovery room after meeting discharge criteria. Home discharge instructions were given to the patient by the staff. The patient was reexamined prior to discharge.
[2018-03-21] MEDS ORDERED: IV FLUID CONTINUATION 1,000 ML IV ONE ×2 (07:31)
[2018-03-21 07:45] VITALS: RESP 20
[2018-03-21 07:49] VITALS: PULSE 57
[2018-03-21 07:53] VITALS: BP 158/65
--- NOTE | 2018-03-21 08:13 | FL ---
Fluoroscopy HISTORY: Pain 19 seconds fluoroscopy time supplied to the referring clinician. 1 intraoperative C-arm images docum ent the procedure. See dictated report from anesthesia.
== END 2018-03-21 08:12 | disposition home or self-care (01) ==
LOC: ORPAIN 06:02
PROVIDERS: ATTEND Specialist
DX: G89.29 Other chronic pain (principal); M51.16 Intervertebral disc disorders with radiculopathy, lumbar region; E78.5 Hyperlipidemia, unspecified; I10 Essential (primary) hypertension; M19.90 Unspecified osteoarthritis, unspecified site; E11.319 Type 2 diabetes mellitus with unspecified diabetic retinopathy without macular edema; M96.1 Postlaminectomy syndrome, not elsewhere classified; H91.90 Unspecified hearing loss, unspecified ear; Z85.47 Personal history of malignant neoplasm of testis; Z92.3 Personal history of irradiation; Z86.14 Personal history of Methicillin resistant Staphylococcus aureus infection; Z87.891 Personal history of nicotine dependence; Z83.3 Family history of diabetes mellitus; Z79.899 Other long term (current) drug therapy; Z79.51 Long term (current) use of inhaled steroids; Z79.84 Long term (current) use of oral hypoglycemic drugs; Z88.1 Allergy status to other antibiotic agents; Z88.5 Allergy status to narcotic agent
CPT/HCPCS: 64483; 64484; J2250; J1030; Q9966; 99152

== ENCOUNTER 2018-04-04 06:51 | Day surgery (SDC) | payer MEDICARE, BC ==
[2018-03-29 11:45] VITALS: BMI 41.5
[2018-04-04] MEDS ORDERED: LACTATED RINGERS 1,000 ML IV SCH (07:00)
[2018-04-04 07:34] VITALS: RESP 16; TEMP 97.6
--- NOTE | 2018-04-04 07:57 | P.PCN ---
Date of Procedure: 04/04/18 Procedure(s) Performed: PREOPERATIVE DIAGNOSIS: Lumbar radiculopathy in right L3-4 ,L4-5 distribution 2-lumbar herniated disc disease. 3-Failed Back surgery syndrome lumbar area. POSTOPERATIVE DIAGNOSIS: Same as preoperative diagnosis. PROCEDURE 1. Transforaminal epidural steroid injection under fluoroscopic guidance at right L3-4 , L4-5 level. 2. Lumbar epidurogram : ANESTHESIA: Local with 1% lidocaine 3 ml , moderate sedation with intravenous Versed 2 mg . EBL: Minimal PROCEDURE INDICATION: The patient with low back pain and radiculopathy symptoms unresponsive to conservative treatment. PROCEDURE DESCRIPTION / TECHNIQUE: The patient was seen and identified in the preoperative area. Risks, benefits , complications, and alternatives were discussed with the patient. The patient agreed to proceed with the procedure and signed the consent. IV was started, and vital signs were stable. Patient was taken to the OR and time out was completed. The patient was placed in the prone position on procedure table and a pillow was placed under the abdomen to reduce lumbar lordosis. The lumbosacral area was prepped and draped in the usual sterile fashion. Critical pause was taken. Vital signs were closely monitored during the procedure. Conscious sedation was used during the procedure to decrease patients anxiety. Using oblique fluoroscopy, the chin of the ``Travis dog at right L3-4 level was identified, and the skin and deeper tissues just below was localized with 1 % lidocaine. Subsequently, a 22-gauge 5 inches inch spinal needle was advanced under a tunneled view fluoroscopic guidance just underneath the chin of the `` Travis dog at the right L3-4 . Under lateral fluoroscopy, the needle was then advanced to the posterior border of the L3-4 interforaminal space. After negative aspiration of CSF and blood and with no paresthesias, 1 mL Isovue 200 contrast dye was injected excellent epidurogram and outlining of the nerve root Subsequently, 2 mL of block solution containing 40 mg Depo-medrol , and 1 mL of Lidocaine 1% was injected. Needle was removed and the same procedure was repeated at the right L4-5 level. At the end of the procedure, skin was cleansed, and bandages were applied. COMPLICATIONS:none DISPOSITION / PLANS: The patient was placed in a supine position and transferred to the recovery area in a stable condition for observation. There was no evidence of lower extremity motor or sensory deficit after the procedure. Patient was discharged from the recovery room after meeting discharge criteria. Home discharge instructions were given to the patient by the staff. The patient was reexamined prior to discharge.
[2018-04-04 07:59] LABS: Glucose,Whole Blood 94 mg/dL (75-99)
[2018-04-04] MEDS ORDERED: IV FLUID CONTINUATION 1,000 ML IV ONE ×2 (08:08)
--- NOTE | 2018-04-04 08:15 | FL ---
Fluoroscopy INDICATION: Pain FINDINGS: Fluoroscopy time: 15 seconds. Images obtained: 1. IMPRESSIONS: 1. Documentation of fluoroscopy.
[2018-04-04 08:16] VITALS: PULSE 61
[2018-04-04 08:31] VITALS: BP 109/67
== END 2018-04-04 08:46 | disposition home or self-care (01) ==
LOC: ORPAIN 06:51
PROVIDERS: ATTEND Specialist
DX: M51.16 Intervertebral disc disorders with radiculopathy, lumbar region (principal); M96.1 Postlaminectomy syndrome, not elsewhere classified; I10 Essential (primary) hypertension; E11.9 Type 2 diabetes mellitus without complications; Z88.1 Allergy status to other antibiotic agents; Z88.5 Allergy status to narcotic agent
CPT/HCPCS: 64483; 64484; J2250; J1030; Q9966; 99152

== ENCOUNTER → 2018-04-17 | Outpatient (CLI) | payer MEDICARE, BC ==
[2018-04-17 14:44] VITALS: BP 115/67; PULSE 66; RESP 16
--- NOTE | 2018-04-17 15:17 | P.PN ---
Subjective Progress Note Date: 04/17/18 This is a 67-year-old gentleman with history of chronic lower back pain and radiation to the right lower extremity down to the right knee with numbness and tingling occasionally. He denies any bowel or bladder dysfunction or any weakness in the lower extremities. His pain has been getting better by the transforaminal epidural steroid injections at the L3 4 and L4 5 levels on the right side. He received 2 of these injections and he would like to have the third one. The patient had 3 back surgeries previously one of them was complicated by infection. Today, pt denies new-onset weakness, bowel/bladder incontinence, or any other signs or symptoms of cauda equina syndrome. There are no signs of acute intoxication, and no indications of medication diversion or overuse. In addition to above, 13-point review of systems is also negative for chest pain , shortness of breath, changes in vision, changes in hearing, new onset weakness , abdominal pain, diarrhea, extreme fatigue, malaise, fever, skin changes, homicidal or suicidal ideation, or bowel or bladder incontinence. Vital Signs: Reviewed in EMR Gen: AAOx3, NAD HEENT: PERRLA,hearing grossly normal Pulm: resp unlabored,CTA Heart:S1,S2, No Mur Neck: supple, trachea midline Neuro exam of the lower extremities: Showed normal muscle strength but absent deep tendon reflexes bilaterally and symmetrically Straight leg raising test: Negative bilaterally Tenderness in the paravertebral musculature: Positive on the right side of the lumbar spine Neuro: CN II-XII grossly intact, Imaging: Reviewed in EMR/chart Assessment: Right lumbar radiculopathy Lumbar failed back surgery syndrome Diabetes Morbid obesity Plan: 1. Explanation: Opioid and psychological risk scores were reviewed. Diagnoses , prognoses, and multiple treatment options including but not limited to physical therapy, interventional therapies, adjuvant medical therapies, narcotic medication therapies, and surgery were discussed with the patient and all questions were answered to the patient's satisfaction. 2. Opioid agreement: We don't prescribe opioids for him 3. Counseling: The patient was counseled extensively on SMOKING CESSATION, BODY MASS INDEX, EXERCISE. Specifically, the patient was instructed regarding the importance of smoking cessation, obesity, and exercise in the context of both chronic pain and overall health. 4. Procedures: Scheduled for the third and last transforaminal epidural steroid injection at the L3 4 and L4 5 levels on the right side under fluoroscopic guidance 5. Consultations: None 6. Investigations: None 7. Medications: None prescribed 8. Disposition: Return for the above-mentioned procedure as scheduled 9. Maps were reviewed and were appropriate. Objective - Vital Signs Vital signs: Vital Signs Temp Pulse 66 04/17/18 14:34 Resp 16 04/17/18 14:34 BP 115/67 04/17/18 14:34 Pulse Ox Intake & Output 04/16/18 04/17/18 04/17/18 18:59 06:59 18:59 Weight 125.191 kg
== END ==
LOC: PNWHC3 14:13
PROVIDERS: ATTEND Anesthesiology
DX: M96.1 Postlaminectomy syndrome, not elsewhere classified (principal); M54.16 Radiculopathy, lumbar region; E11.9 Type 2 diabetes mellitus without complications; E66.01 Morbid (severe) obesity due to excess calories; Z68.41 Body mass index [BMI] 40.0-44.9, adult
CPT/HCPCS: 99211

== ENCOUNTER 2018-04-27 05:58 | Day surgery (SDC) | payer MEDICARE, BC ==
[2018-04-24 15:26] VITALS: BMI 41.8
[2018-04-27 06:44] VITALS: RESP 16; TEMP 98.3
[2018-04-27 07:01] LABS: Glucose,Whole Blood 97 mg/dL (75-99)
--- NOTE | 2018-04-27 07:25 | P.PCN ---
Date of Procedure: 04/27/18 Procedure(s) Performed: PREOPERATIVE DIAGNOSIS: Lumbar radiculopathy in right L3-4 ,L4-5 distribution 2-lumbar herniated disc disease. 3-Failed Back surgery syndrome lumbar area. POSTOPERATIVE DIAGNOSIS: Same as preoperative diagnosis. PROCEDURE 1. Transforaminal epidural steroid injection under fluoroscopic guidance at right L3-4 , L4-5 level. 2. Lumbar epidurogram : ANESTHESIA: Local with 1% lidocaine 3 ml , moderate sedation with intravenous Versed 2 mg . EBL: Minimal PROCEDURE INDICATION: The patient with low back pain and radiculopathy symptoms unresponsive to conservative treatment. PROCEDURE DESCRIPTION / TECHNIQUE: The patient was seen and identified in the preoperative area. Risks, benefits , complications, and alternatives were discussed with the patient. The patient agreed to proceed with the procedure and signed the consent. IV was started, and vital signs were stable. Patient was taken to the OR and time out was completed. The patient was placed in the prone position on procedure table and a pillow was placed under the abdomen to reduce lumbar lordosis. The lumbosacral area was prepped and draped in the usual sterile fashion. Critical pause was taken. Vital signs were closely monitored during the procedure. Conscious sedation was used during the procedure to decrease patients anxiety. Using oblique fluoroscopy, the chin of the ``Travis dog at right L3-4 level was identified, and the skin and deeper tissues just below was localized with 1 % lidocaine. Subsequently, a 22-gauge 5 inches inch spinal needle was advanced under a tunneled view fluoroscopic guidance just underneath the chin of the `` Travis dog at the right L3-4 . Under lateral fluoroscopy, the needle was then advanced to the posterior border of the L3-4 interforaminal space. After negative aspiration of CSF and blood and with no paresthesias, 1 mL Isovue 200 contrast dye was injected excellent epidurogram and outlining of the nerve root Subsequently, 2 mL of block solution containing 40 mg Depo-medrol , and 1 mL of Lidocaine 1% was injected. Needle was removed and the same procedure was repeated at the right L4-5 level. At the end of the procedure, skin was cleansed, and bandages were applied. COMPLICATIONS:none DISPOSITION / PLANS: The patient was placed in a supine position and transferred to the recovery area in a stable condition for observation. There was no evidence of lower extremity motor or sensory deficit after the procedure. Patient was discharged from the recovery room after meeting discharge criteria. Home discharge instructions were given to the patient by the staff. The patient was reexamined prior to discharge.
[2018-04-27] MEDS ORDERED: IV FLUID CONTINUATION 1,000 ML IV ONE ×2 (07:31)
[2018-04-27 07:52] VITALS: BP 114/65; PULSE 60
--- NOTE | 2018-04-27 13:38 | FL ---
EXAMINATION TYPE: FL guided pain mgmt statistic DATE OF EXAM: 04/27/2018 FLUOROSCOPY Fluoroscopy time of 12 seconds was used during right transforaminal steroid injection. 3 image/s doc ument/s the procedure.
== END 2018-04-27 08:13 | disposition home or self-care (01) ==
LOC: ORPAIN 05:58
PROVIDERS: ATTEND Specialist
DX: M96.1 Postlaminectomy syndrome, not elsewhere classified (principal); M51.16 Intervertebral disc disorders with radiculopathy, lumbar region; I10 Essential (primary) hypertension; E11.9 Type 2 diabetes mellitus without complications; Z85.47 Personal history of malignant neoplasm of testis; Z88.1 Allergy status to other antibiotic agents; Z88.5 Allergy status to narcotic agent
CPT/HCPCS: 64483; 64484; J2250; J1030; Q9966; 99152

== ENCOUNTER → 2018-05-15 | Outpatient (CLI) | payer MEDICARE, BC ==
[2018-05-15 11:54] VITALS: BP 119/67; PULSE 70; RESP 16
--- NOTE | 2018-05-15 13:03 | P.PN ---
Subjective Progress Note Date: 05/15/18 This is a 67-year-old gentleman with history of failed back surgery syndrome and pain radiating down the right leg. His right leg pain has improved significantly since the transforaminal epidural steroid injections however he does have mild lower back pain more on the left side than the right side. He grades his pain at 2 out of 10 on a scale from 0-10. Today, pt denies new-onset weakness, bowel/bladder incontinence, or any other signs or symptoms of cauda equina syndrome. There are no signs of acute intoxication, and no indications of medication diversion or overuse. In addition to above, 13-point review of systems is also negative for chest pain , shortness of breath, changes in vision, changes in hearing, new onset weakness , abdominal pain, diarrhea, extreme fatigue, malaise, fever, skin changes, homicidal or suicidal ideation, or bowel or bladder incontinence. Vital Signs: Reviewed in EMR Gen: AAOx3, NAD HEENT: PERRLA,hearing grossly normal Pulm: resp unlabored,CTA Heart:S1,S2, No Mur He has tenderness in the lower lumbar paravertebral area bilaterally more on the left side Neuro: CN II-XII grossly intact, Imaging: Reviewed in EMR/chart Assessment: Failed back surgery syndrome Morbid obesity Left sacroiliitis Plan: 1. Explanation: Opioid and psychological risk scores were reviewed. Diagnoses , prognoses, and multiple treatment options including but not limited to physical therapy, interventional therapies, adjuvant medical therapies, narcotic medication therapies, and surgery were discussed with the patient and all questions were answered to the patient's satisfaction. 2. Opioid agreement: We do not prescribe opioids 3. Counseling: The patient was counseled extensively on SMOKING CESSATION, BODY MASS INDEX, EXERCISE. Specifically, the patient was instructed regarding the importance of smoking cessation, obesity, and exercise in the context of both chronic pain and overall health. 4. Procedures: If The patient's pain in his lower back is getting worse then we'll schedule him to have left sacroiliac joint steroid injection under fluoroscopic guidance , but for now there is no need for any injections since his pain is very mild at this point 5. Consultations: None 6. Investigations: None 7. Medications: The patient uses [id number] medications for his pain 8. Disposition: Return to clinic as needed Objective - Vital Signs Vital signs: Vital Signs Temp Pulse 70 10/15/18 11:52 Resp 16 05/15/18 11:52 BP 119/67 05/15/18 11:52 Pulse Ox 95 05/15/18 11:52 Intake & Output 05/14/18 05/15/18 05/15/18 18:59 06:59 18:59 Weight 124.738 kg
== END ==
LOC: PNWHC3 11:34
PROVIDERS: ATTEND Anesthesiology
DX: M96.1 Postlaminectomy syndrome, not elsewhere classified (principal); E66.01 Morbid (severe) obesity due to excess calories; M46.1 Sacroiliitis, not elsewhere classified
CPT/HCPCS: 99211

== ENCOUNTER → 2018-07-07 | Outpatient (CLI) | payer MEDICARE, BC ==
--- NOTE | 2018-07-07 12:49 | US ---
EXAMINATION TYPE: US venous doppler duplex LE RT DATE OF EXAM: 07/07/2018 12:38 PM COMPARISON: NONE CLINICAL HISTORY: R60.9 EDEMA,M25.571 PAIN RT ANKLE AND JOINTS OF RT FOOT. SIDE PERFORMED: Right TECHNIQUE: The lower extremity deep venous system is examined utilizing real time linear array sonog chelsy with graded compression, doppler sonography and color-flow sonography. VESSELS IMAGED: External Iliac Vein (EIV) Common Femoral Vein Deep Femoral Vein Greater Saphenous Vein * Femoral Vein Popliteal Vein Small Saphenous Vein * Proximal Calf Veins (* superficial vessels) Right Leg: Negative for DVT GSV also scanned per order. Portion of the greater saphenous included within the images unremarkable. Attempted to see PTV's, due to swelling and morbid obesity, unable to visualize. IMPRESSION: 1. Right lower extremity ultrasound negative for deep venous thrombosis.
== END | disposition home or self-care (01) ==
LOC: RADUSWWP 11:47
PROVIDERS: ATTEND Orthopaedic Surgery
DX: M25.571 Pain in right ankle and joints of right foot (principal); R60.9 Edema, unspecified; S86.819A Strain of other muscle(s) and tendon(s) at lower leg level, unspecified leg, initial encounter

== ENCOUNTER → 2019-03-27 | Outpatient (CLI) | payer BC, MEDICARE ==
[2019-03-27 11:25] VITALS: BP 124/68; PULSE 68; RESP 16
--- NOTE | 2019-03-27 12:13 | P.PAINPG ---
Subjective Progress Note Date: 03/27/19 Mr. 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 He presents to our clinic as a follow-up for recurrent low back and right leg pain. He has been gaining weight. He is previously had right L3-L4 and L4-L5 right transforaminal injections with good improvement of his leg pain. He states that about half of his pain is in his back and have this pain is in his legs. Otherwise he reports no new history, he is diabetic. His MRI was reviewed from 2018 today Objective - Vital Signs Vital signs: Vital Signs Temp Pulse 68 03/27/19 11:17 Resp 16 03/27/19 11:17 BP 124/68 03/27/19 11:17 Pulse Ox 98 03/27/19 11:17 Intake & Output 03/26/19 03/27/19 03/27/19 18:59 06:59 18:59 Weight 127.006 kg - Exam Vital Signs: Reviewed in EMR GENERAL: Well appearing, in no acute distress, PSYCH: Mood and affect is appropriate. Awake, alert, and oriented SKIN: Skin color, texture, turgor normal, no rashes or lesions HEENT: Normocephalic, atraumatic. EOM intact CV: No pedal edema RESP: Respirations are unlabored, no audible wheezing GI: Abdomen non-distended MUSCULOSKELETAL: Bilateral upper and lower extremity strength is normal and sy mmetric. No atrophy or tone abnormalities are noted. Lumbar spine: Some pain to palpation over the lumbar spine and paraspinous muscles. Straight leg test on the right was negative Buttocks: No pain to palpation over the PSIS, [place] test is negative bilaterally Extremities: Peripheral joint ROM is full and pain free without obvious instability or laxity in all four extremities. No edema or skin discolorations noted. Gait: Gait is anantalgic NEUR: Bilateral upper and lower extremity coordination and muscle stretch reflexes are physiologic and symmetric. No loss of sensation is noted. Cranial nerves are grossly intact. Assessment and Plan Assessment: Assessment: 1. Lumbar radiculopathy without myelopathy 2. Lumbar spondylosis 3. Obesity Plan: 1. Explanation: The patient's disease process was explained to him 2. Opioid agreement: None 3. Counseling: The patient was counseled extensively on BODY MASS INDEX, EXERCISE. Specifically, the patient was instructed regarding the importance of weight control, and exercise in the context of both chronic pain and overall health. 4. Procedures: Repeat right L3/4 and L4/L5 right TFESI. If he continues to have low back pain can consider a mbb/rfa workup for his axial pain 5. Consultations: None 6. Investigations: MRI reviewed 7. Medications: Encouraged patient to have discussions with primary care physician 8. Disposition: For procedure , PQRS Measure Charge Sheet Measure #47: Advance Care Plan: Advance care planning discussed & documented, pt chose/unable to give Measure #131: Pain Assessment & Follow-up: Pain positive & plan documented, Follow-up scheduled PQRS Narrative: Smoking Status Former smoker Blood Pressure 124/68 Pain Intensity [Lower Back] 5 Scale Used Numeric (1 - 10) Hx Alcohol Use (MH) Yes: RARE. Home Medications: Ambulatory Orders Atorvastatin [Lipitor] 20 mg PO HS 01/07/14 Methocarbamol [Robaxin] 500 mg PO BID 01/07/14 Multivitamin [Men's Multi-Vitamin] 1 tab PO DAILY 01/07/14 [place]-3 Acid Ethyl Esters [Lovaza] 4 gm PO DAILY 01/07/14 Pioglitazone HCl 45 mg PO DAILY 01/07/14 Pregabalin [Lyrica] 150 mg PO BID 01/07/14 metFORMIN HCL 1,000 mg PO BID 01/07/14 Fenofibric Acid (Choline) [Trilipix] 135 mg PO HS 04/05/14 Fluticasone Propionate [Flonase] 1 spray EA NOSTRIL HS 04/05/14 Tamsulosin HCl [Flomax] 0.4 mg PO DAILY 04/15/14 Finasteride [Proscar] 5 mg PO HS 02/25/16 Naproxen 500 mg PO DAILY 02/25/16 L.acidoph,Paracasei, B.lactis [Probiotic] 1 cap PO DAILY 05/06/16 Ferrous Sulfate [Iron (65 MG Elemental)] 325 mg PO DIRECTED 06/07/16 Ascorbic Acid [Vitamin C] 500 mg PO DAILY 09/28/16 Cholecalciferol [Vitamin D3] 1,000 unit PO DAILY 03/08/18 Liraglutide [Victoza 2-Tim] 1.8 mg SQ DAILY 03/08/18 Lisinopril [Zestril] 10 mg PO DAILY 03/08/18 Magnesium Gluconate [Magonate] 500 mg PO DAILY 03/08/18 Melatonin 3 mg PO HS 03/08/18 Omeprazole 20 mg PO DAILY PRN 03/08/18 Citirizine 1 tab PO DAILY 03/27/19 Furosemide [Lasix] 1 tab PO DAILY 03/27/19 Liraglutide [Victoza 3-Tim] 1.8 mg SQ DAILY 03/27/19 Potassium Chloride ER [K-Dur 20] 1 tab PO DIRECTED 03/27/19 Controlled Substance Measures - Controlled Substance Measures Is patient prescribed a controlled substance at discharge?: No
== END | disposition home or self-care (01) ==
LOC: PNWHC3 11:07
PROVIDERS: ATTEND Student in an Organized Health Care Education/Training Program
DX: M47.26 Other spondylosis with radiculopathy, lumbar region (principal); E66.9 Obesity, unspecified; E11.9 Type 2 diabetes mellitus without complications; Z87.891 Personal history of nicotine dependence; Z79.84 Long term (current) use of oral hypoglycemic drugs; Z79.899 Other long term (current) drug therapy; Z68.41 Body mass index [BMI] 40.0-44.9, adult
CPT/HCPCS: 99211

== ENCOUNTER 2019-04-19 06:53 | Day surgery (SDC) | payer MEDICARE ==
[2019-04-17 11:01] VITALS: BMI 43.7
[2019-04-19 07:12] VITALS: TEMP 98
[2019-04-19 07:25] LABS: Glucose,Whole Blood 106 mg/dL (75-99)
[2019-04-19] MEDS ORDERED: LIDOCAINE 1% 20 ML VIAL (10MG/ML) FOR IV START INTRADERMA ONE (07:25)
--- NOTE | 2019-04-19 08:28 | P.PCN ---
Date of Procedure: 04/19/19 Procedure(s) Performed: DESCRIPTION OF PROCEDURE(S): PREOPERATIVE DIAGNOSIS: Lumbar radiculopathy POSTOPERATIVE DIAGNOSIS: Lumbar radiculopathy PROCEDURE 1. Transforaminal epidural steroid injection under fluoroscopic guidance right L3/L4, L4/L5 2. Lumbar epidurogram ANESTHESIA: Local with 1% lidocaine 3 ml ; moderate sedation with Versed 2 mg and fentanyl 100 micrograms. PROCEDURE INDICATION: The patient with low back pain and radiculopathy symptoms unresponsive to conservative treatment. PROCEDURE DESCRIPTION / TECHNIQUE: The patient was seen and identified in the preoperative area. Risks, benefits, complications, and alternatives were discussed with the patient. The patient agreed to proceed with the procedure and signed the consent. IV was started, and vital signs were stable. Patient was taken to the OR and time out was completed. The patient was placed in the prone position on procedure table and a pillow was placed under the abdomen to reduce lumbar lordosis. The lumbosacral area was prepped and draped in the usual sterile fashion. Vital signs were closely monitored during the procedure. Conscious sedation was used. Using oblique fluoroscopy, the chin of the ``Travis dog and the skin and deeper tissues just below was localized with 1% lidocaine. Subsequently, a 22- gauge 5-inch spinal needle was advanced under a tunneled view fluoroscopic guidance just underneath the chin of the ``Travis dog . Under lateral fluoroscopy, the needle was then advanced to the posterior border of the foramen. After negative aspiration of CSF and blood and with no paresthesias, 1 mL of Omnipaque-240 contrast dye was injected and there was no evidence of intravascular injection. The injectate solution was then delivered, which was a total of 10 mg dexamethasone and 3 cc of 1% lidocaine. The needle was withdrawn intact. At the end of the procedure, skin was cleansed, and bandages were applied. Images were saved to chart. COMPLICATIONS: None COMMENTS: For the next procedure, would consider just injecting L3/L4 as this is where his predominant pain is and the L4/L5 level was difficult to visualize. DISPOSITION / PLANS: The patient was placed in a supine position and transferred to the recovery area in a stable condition for observation. There was no evid ence of lower extremity motor or sensory deficit after the procedure. Patient was discharged from the recovery room after meeting discharge criteria. Home discharge instructions were given to the patient by the staff. The patient was reexamined prior to discharge. He will be scheduled for a repeat procedure if he has good benefit from this.
[2019-04-19] MEDS ORDERED: IV FLUID CONTINUATION 550 ML IV ONE (08:30)
[2019-04-19 08:48] VITALS: BP 131/60; PULSE 60; RESP 18
--- NOTE | 2019-04-19 09:27 | FL ---
EXAMINATION TYPE: FL guided pain mgmt statistic DATE OF EXAM: 04/19/2019 HISTORY: Pain Lumbar epidural injection was performed. 19 seconds of fluoroscopic time was provided by the departm ent of radiology. 7 image was provided for documentation purposes.
== END 2019-04-19 09:00 | disposition home or self-care (01) ==
LOC: ORPAIN 06:53
PROVIDERS: ATTEND Student in an Organized Health Care Education/Training Program
DX: M54.16 Radiculopathy, lumbar region (principal); G62.9 Polyneuropathy, unspecified; Z79.1 Long term (current) use of non-steroidal anti-inflammatories (NSAID); Z88.5 Allergy status to narcotic agent
CPT/HCPCS: 64483; 64484; J2250; J1100; Q9966; 99152

== ENCOUNTER 2019-05-21 06:52 | Day surgery (SDC) | payer MEDICARE ==
[2019-05-17 13:16] VITALS: BMI 42.5
[2019-05-21 07:25] VITALS: TEMP 97.3
[2019-05-21 07:25] LABS: Glucose,Whole Blood 98 mg/dL (75-99)
[2019-05-21] MEDS ORDERED: LACTATED RINGERS 1,000 ML IV ONE (07:25)
[2019-05-21] MEDS ORDERED: IV FLUID CONTINUATION 800 ML IV ONE (07:56)
[2019-05-21 08:15] VITALS: BP 122/73; PULSE 61; RESP 16
--- NOTE | 2019-05-21 08:41 | P.PCN ---
Date of Procedure: 05/21/19 Description of Procedure: PREOPERATIVE DIAGNOSIS: Lumbar radiculopathy POSTOPERATIVE DIAGNOSIS: Lumbar radiculopathy PROCEDURE 1. Transforaminal epidural steroid injection under fluoroscopic guidance right L3/L4, L4/L5 #2 2. Lumbar epidurogram ANESTHESIA: Local with 1% lidocaine 3 ml ; moderate sedation with Versed 2 mg and fentanyl 100 micrograms. PROCEDURE INDICATION: The patient with low back pain and radiculopathy symptoms unresponsive to conservative treatment. PROCEDURE DESCRIPTION / TECHNIQUE: The patient was seen and identified in the preoperative area. Risks, benefits, complications, and alternatives were discussed with the patient. The patient agreed to proceed with the procedure and signed the consent. IV was started, and vital signs were stable. Patient was taken to the OR and time out was completed. The patient was placed in the prone position on procedure table and a pillow was placed under the abdomen to reduce lumbar lordosis. The lumbosacral area was prepped and draped in the usual sterile fashion. Vital signs were closely monitored during the procedure. Conscious sedation was used. Using oblique fluoroscopy, the chin of the ``Travis dog and the skin and deeper tissues just below was localized with 1% lidocaine. Subsequently, a 22- gauge 5-inch spinal needle was advanced under a tunneled view fluoroscopic guidance just underneath the chin of the ``Travis dog . Under lateral fluoroscopy, the needle was then advanced to the posterior border of the foramen. After negative aspiration of CSF and blood and with no paresthesias, 1 mL of Omnipaque-240 contrast dye was injected and there was no evidence of intravascular injection. The injectate solution was then delivered, which was a total of 10 mg dexamethasone and 3 cc of 1% lidocaine at each location between L3-4 and L4-5. The needle was withdrawn intact. At the end of the procedure, s kin was cleansed, and bandages were applied. Images were saved to chart. COMPLICATIONS: None COMMENTS:Tolerated well, repeat #3 in 2-4 weeks. DISPOSITION / PLANS: The patient was placed in a supine position and transferred to the recovery area in a stable condition for observation. There was no evidence of lower extremity motor or sensory deficit after the procedure. Patient was discharged from the recovery room after meeting discharge criteria. Home discharge instructions were given to the patient by the staff. The patient was reexamined prior to discharge. He will be scheduled for a repeat procedure if he has good benefit from this.
--- NOTE | 2019-05-21 11:51 | FL ---
EXAMINATION TYPE: FL guided pain mgmt statistic DATE OF EXAM: 05/21/2019 FLUOROSCOPY Fluoroscopy time of 33 seconds was used during lumbar pain management procedure. 3 image/s document/ s the procedure.
== END 2019-05-21 08:45 | disposition home or self-care (01) ==
LOC: ORPAIN 06:52
PROVIDERS: ATTEND Anesthesiology
DX: M54.16 Radiculopathy, lumbar region (principal); Z88.1 Allergy status to other antibiotic agents; Z88.5 Allergy status to narcotic agent
CPT/HCPCS: 64483; 64484; J2250; J1100; Q9966; 99152

== ENCOUNTER → 2019-06-25 | Day surgery (SDC) | payer MEDICARE ==
[2019-06-21 15:10] VITALS: BMI 43.7
[~2019-06-25] MED LIST changes: +LIDOCAINE 1% 20 ML VIAL (10MG/ML) FOR IV START INTRADERMA ONE
[2019-06-25 07:01] VITALS: TEMP 97.1
--- NOTE | 2019-06-25 07:53 | P.PCN ---
Date of Procedure: 06/25/19 Procedure(s) Performed: PREOPERATIVE DIAGNOSIS: Lumbar radiculopathy in right L3-4 ,L4-5 distribution 2-lumbar herniated disc disease. 3-Failed Back surgery syndrome lumbar area. POSTOPERATIVE DIAGNOSIS: Same as preoperative diagnosis. PROCEDURE 1. Transforaminal epidural steroid injection under fluoroscopic guidance at right L3-4 , L4-5 level. 2. Lumbar epidurogram : ANESTHESIA: Local with 1% lidocaine 3 ml , moderate sedation with intravenous Versed 2 mg . EBL: Minimal PROCEDURE INDICATION: The patient with low back pain and radiculopathy symptoms unresponsive to conservative treatment. PROCEDURE DESCRIPTION / TECHNIQUE: The patient was seen and identified in the preoperative area. Risks, benefits, complications, and alternatives were discussed with the patient. The patient agreed to proceed with the procedure and signed the consent. IV was started, and vital signs were stable. Patient was taken to the OR and time out was completed. The patient was placed in the prone position on procedure table and a pillow was placed under the abdomen to reduce lumbar lordosis. The lumbosacral area was prepped and draped in the usual sterile fashion. Critical pause was taken. Vital signs were closely monitored during the procedure. Conscious sedation was used during the procedure to decrease patients anxiety. Using oblique fluoroscopy, the chin of the ``Travis dog at right L3-4 level was identified, and the skin and deeper tissues just below was localized with 1% lidocaine. Subsequently, a 22-gauge 5 inches inch spinal needle was advanced under a tunneled view fluoroscopic guidance just underneath the chin of the ``Travis dog at the right L3-4 . Under lateral fluoroscopy, the needle was then advanced to the posterior border of the L3-4 interforaminal space. After negative aspiration of CSF and blood and with no paresthesias, 1 mL Isovue 200 contrast dye was injected excellent epidurogram and outlining of the nerve root Subsequently, 2 mL of block solution containing 40 mg Depo-medrol , and 1 mL of Lidocaine 1% was injected. Needle was removed and the same procedure was repeated at the right L4-5 level. At the end of the procedure, skin was cleansed, and bandages were applied. COMPLICATIONS:none DISPOSITION / PLANS: The patient was placed in a supine position and transferred to the recovery area in a stable condition for observation. There was no evidence of lower extremity motor or sensory deficit after the procedure. Patient was discharged from the recovery room after meeting discharge criteria. Home discharge instructions were given to the patient by the staff. The patient was reexamined prior to discharge.
[2019-06-25 08:02] VITALS: RESP 17
--- NOTE | 2019-06-25 08:03 | FL ---
Fluoroscopy INDICATION: Pain FINDINGS: Fluoroscopy time: 7 seconds. Images obtained: 1. IMPRESSIONS: 1. Documentation of fluoroscopy.
[2019-06-25 08:11] VITALS: BP 149/62; PULSE 66
== END ==
LOC: ORPAIN 06:19
PROVIDERS: ATTEND Specialist
DX: M51.16 Intervertebral disc disorders with radiculopathy, lumbar region (principal); M96.1 Postlaminectomy syndrome, not elsewhere classified; Z88.1 Allergy status to other antibiotic agents; Z88.5 Allergy status to narcotic agent
CPT/HCPCS: 64483; 64484; J2250; J1030; Q9966

== ENCOUNTER → 2019-07-18 | Outpatient (CLI) | payer MEDICARE ==
[2019-07-18 13:19] VITALS: BP 126/73; PULSE 71; RESP 16
--- NOTE | 2019-07-19 11:05 | P.PAINPG ---
Subjective Progress Note Date: 07/18/19 this is a follow-up visit for this 69 years old male with a chronic history of severe low back pain with radiation to the right lower extremity, his trevon were lumbar radiculopathy and failed back surgery syndrome and lumbar area, status post right-sided transforaminal epidural steroid injection at L3 4, L4 5,patient reports that he gets excellent pain relief from the injection, and currently he is not having any radicular symptoms to his right lower extremity he continued to have severe low back pain across his back, he denies any change in the bowel movement or urination, he denies any motor or sensory deficits, he is able to ambulate without difficulty but any change in position especially hyp erextension increases pain,patient continues to use naproxen 500 mg daily Tylenol when necessary Robaxin 500 mg twice a day and Lyrica 50 mg twice a day and he is getting prescription refills from his primary care, he denies any side effects of the medication he denies any excessive drowsiness and sleepiness, and heat for the current medication is helping to control his pain Objective - Vital Signs Vital signs: Vital Signs Temp Pulse 71 07/18/19 13:07 Resp 16 07/18/19 13:07 BP 126/73 07/18/19 13:07 Pulse Ox 96 07/18/19 13:07 - Exam Physical Examinations : -Constitutiona : Cooperative , not in acute distress . -HEENT : nech : supple , no Lymphadenopathy , normal thyroid size . : eyes : no ptosis , no icterus, no photophobia . : ENT : normal of hearing , normal oropharynx , no Thrush . - Respiratory : Chest clear to auscultations Bilaterally , no wheezing , no Rhonchi . - Cardiovascula : regular rate and rhythem , S1 , S2 , no S3 , no S4. - Gastrointestina : abdomen soft no tenderness , bowel sounds , no organomegally . - Genitourinary : Defferred . - neurologic : Cranial nerve II to XII intact , no focal neurological deffecit . -psychatric : alert , oriented X 3 , appropriate affect , intact judgment and insight . -Lymphatic : no Lymphadenopathy . - musculoskeltal : Lumber spine moter stegnth lower extremities ,thigh and legs 5/5 Right side , 5/5 Left side deep tendon reflexes : normal Knee Jerk , normal ankle Jerk lumber facet Loading Test =positive Right , positive Left Range of motion of the lumbar spine Flexion 30 degrees, extension 10 degrees strait leg raising test = positive at 60 degree Fabere test= positive Right , and positive LT . Sever tenderness over the Sacroiliac joint on the Right , and Left sides Assessment and Plan Plan: assessment and plan=1-failed back surgery syndrome lumbar area. 2-lumbar radiculopathy. 3-lumbar spondylosis with lumbar facet arthr opathy. The patient reported that his radicular symptoms improved after transforaminal epidural steroid injection currently is complaining of low back pain mostly secondary to facetogenic component in the lumbar area,patient will be good candidate to have diagnostic medial branch blocks L3/L4/L5 underfluoroscopy guidance , Time with Patient: Less than 30 PQRS Measure Charge Sheet Measure #130: Documentation of Current Meds in Medical Chart: Patient's medications documented in chart Measure #226: Tobacco Use: Screen & Cessation Intervention: Pt not a tobacco user Measure #111: Pneumonia Vaccination: Pneumococcal vaccine NOT administered or previously given Measure #47: Advance Care Plan: Advance care planning discussed & documented, pt chose/unable to give Measure #412: Opioid Treatment Agreement: No documentation of signed opioid treatment agreement Measure #408: Opioid Therapy Follow-up Evaluation: Patient had NO f/u eval minimum every 3 months during opioid therapy Measure #317: Preventitive Care & Scrn High Bld Press & F/U: Pre-hypertensive or hypertensive BP documented, pt will f/u with PCP Measure #128: Body Mass Index (BMI) Screening & Follow-up: BMI documented ABOVE normal parameters - f/u documented Measure #131: Pain Assessment & Follow-up: Pain positive & plan documented, Follow-up scheduled Measure #431: Unhealthy Alcohol Use Preventative Care & Scrn: Patient not identified as an unhealthy alcohol user PQRS Narrative: Smoking Status Former smoker Blood Pressure 126/73 Pain Intensity [Lower Back] 2 Scale Used Numeric (1 - 10) Hx Alcohol Use (MH) Yes: RARE. Home Medications: Ambulatory Orders Atorvastatin [Lipitor] 20 mg PO HS 01/07/14 Methocarbamol [Robaxin] 500 mg PO BID 01/07/14 Multivitamin [Men's Multi-Vitamin] 1 tab PO DAILY 01/07/14 [place]-3 Acid Ethyl Esters [Lovaza] 4 gm PO DAILY 01/07/14 Pregabalin [Lyrica] 150 mg PO BID 01/07/14 metFORMIN HCL 1,000 mg PO BID 01/07/14 Fenofibric Acid (Choline) [Trilipix] 135 mg PO HS 04/05/14 Fluticasone Propionate [Flonase] 1 spray EA NOSTRIL HS 04/05/14 Tamsulosin HCl [Flomax] 0.4 mg PO DAILY 04/15/14 Finasteride [Proscar] 5 mg PO HS 02/25/16 Naproxen 500 mg PO DAILY 02/25/16 L.acidoph,Paracasei, B.lactis [Probiotic] 1 cap PO DAILY 05/06/16 Ferrous Sulfate [Iron (65 MG Elemental)] 325 mg PO FR 06/07/16 Ascorbic Acid [Vitamin C] 500 mg PO DAILY 09/28/16 Cholecalciferol [Vitamin D3] 1,000 unit PO DAILY 03/08/18 Lisinopril [Zestril] 10 mg PO DAILY 03/08/18 Magnesium Gluconate [Magonate] 500 mg PO DAILY 03/08/18 Melatonin 3 mg PO HS 03/08/18 Omeprazole 20 mg PO DAILY PRN 03/08/18 Liraglutide [Victoza 3-Tim] 1.8 mg SQ DAILY 03/27/19 Cetirizine HCl 10 mg PO DAILY 04/17/19 Acetaminophen [Tylenol Arthritis] 1,300 mg PO BID PRN 06/21/19 Topiramate [Topamax] 25 mg PO DAILY 06/21/19 Controlled Substance Measures - Controlled Substance Measures Is patient prescribed a controlled substance at discharge?: No
== END | disposition home or self-care (01) ==
LOC: PNWHC3 12:37
PROVIDERS: ATTEND Specialist
DX: M96.1 Postlaminectomy syndrome, not elsewhere classified (principal); M47.26 Other spondylosis with radiculopathy, lumbar region; M46.96 Unspecified inflammatory spondylopathy, lumbar region; Z79.891 Long term (current) use of opiate analgesic; Z79.899 Other long term (current) drug therapy; Z87.891 Personal history of nicotine dependence; Z79.84 Long term (current) use of oral hypoglycemic drugs
CPT/HCPCS: 99211

== ENCOUNTER 2019-08-15 07:20 | Day surgery (SDC) | payer MEDICARE ==
[2019-08-13 14:45] VITALS: BMI 42.5
[~2019-08-15 07:20] MED LIST changes: +BUPIVACAINE (PF) 0.5% 30 ML VIAL ONE; -LIDOCAINE 1% 20 ML VIAL (10MG/ML) FOR IV START INTRADERMA ONE; +MIDAZOLAM 2 MG/2 ML VIAL ONE
[2019-08-15 07:54] VITALS: RESP 16; TEMP 97.4
[2019-08-15] MEDS ORDERED: LIDOCAINE 1% (10MG/ML) FOR IV START INTRADERMA ONE (07:54)
[2019-08-15 07:56] LABS: Glucose,Whole Blood 93 mg/dL (75-99)
[2019-08-15] MEDS ORDERED: IV FLUID CONTINUATION 450 ML IV ONE (09:05)
--- NOTE | 2019-08-15 09:12 | P.PCN ---
Date of Procedure: 08/15/19 Description of Procedure: DESCRIPTION OF PROCEDURE(S): PROCEDURE: Bilateral lumbar medial branch block L3-L4, L4-L5, L5-S1 with fluoroscopy PREOPERATIVE DIAGNOSIS : 1- Lumbar spondylosis with Facet Arthropathy without myelopathy . 2- Lumbar post-laminectomy syndrome POSTOPERATIVE DIAGNOSIS: 1- Lumbar spondylosis with Facet Arthropathy without myelopathy . 2-lumbar post-laminectomy syndrome PROCEDURE: Diagnostic bilateral L3 -4 , L4 -5 , and L5-S1 medial branch block under fluoroscopy ANESTHESIA: IV sedation with Versed 1mg COMPLICATION: None. IV FLUIDS: 100 mL of normal saline. PROCEDURE INDICATION: Chronic low back pain secondary to Facet arthropathy as well as multilevel laminectomy secondary to spinal stenosis, he underwent transforaminal epidural steroid injections with moderate relief with persistent axial low back pain. PROCEDURE DESCRIPTION: the patient was seen and identified in the preop holding area , risks and benefits and possible complications of the procedure and alternative were discussed with the patient, and the patient agreed to proceed with the procedure and signed the consent IV was started and vital signs monitored during the procedure and fluoroscopy was used to maximize the benefit and accuracy of the needle placement, and sedation was given to decrease patient anxiety, patient was taken to the procedure room and placed in prone position vital signs monitored in the back prepped with chlorhexidine X3 then under strict sterile technique using a right oblique fluoroscopy ,the junction of the transverse process and the superior articulating process of the right L3- 4 , L4- 5, and L5-S1 vertebra which corresponding to the fluoroscopy image of the eye of the Travis dog on the block side for the medial branches and subsequently , a 25-gauge Quincke-type needle was used and each time placed at the junction of the base of the transverse process and the superior articular process at the appropriate level L3, L4, L5, S1 pedicle. The needle was advanced until the periosteum contacted, needle placement confirmed with AP oblique and lateral view and after appropriate needle placement confirmed, and after negative aspiration for heme and CSF and there was no paresthesia 1 mL of 0.5% ropivacaine was injected at each medial branch. The needle subsequently removed and the same procedure repeated for the left side at left side at L3-4, L4- 5 and L5-S1 levels. At the end of the procedure and the needles removed and a bandage applied after the skin was cleaned the cleaning solution patient taken to recovery room in st able condition and monitors in the recovery room for 20-30 minutes and discharged home in stable condition after discharge criteria met and patient will return for repeat procedure in 2-4 weeks.
[2019-08-15 09:20] VITALS: BP 113/56; PULSE 71
--- NOTE | 2019-08-15 09:45 | FL ---
Fluoroscopy INDICATION: Pain FINDINGS: Fluoroscopy time: 21 seconds. Images obtained: 3. IMPRESSIONS: 1. Documentation of fluoroscopy.
--- NOTE | 2019-08-17 09:29 | CDI ---
Date: 08/17/19 CDS/Senior Process Control Tech Name: Bre Dubois Phone: If any questions, call Mica Garcia [employer] Developer at [phone] Patient: Name: Austyn Rivera Admit Date: 08/15/19 Discharge Dage: 08/15/19 ATTENTION: The [facility] Coding Staff appreciate your assistance in clarifying documentation. Please respond to the clarification below the line at the bottom and electronically sign. The [facility] Coding Staff with review the response and follow up in needed. Please Note: Queries are made a part of the Legal Health Record. If you have any questions, please contact the Ux Developer. Dear Dr. Mayo, Please clarify the type of sedation given. The operative report states IV sedation with versed. The Pain Procedure record does not have anything checked under Anesthesia Plan. Please clarify if moderate/conscious sedation or unconscious sedation was used. Thank you for your kind consideration, MTDD
== END 2019-08-15 09:53 | disposition home or self-care (01) ==
LOC: ORPAIN 07:20
PROVIDERS: ATTEND Anesthesiology
DX: G89.29 Other chronic pain (principal); M47.26 Other spondylosis with radiculopathy, lumbar region; M96.1 Postlaminectomy syndrome, not elsewhere classified; E11.9 Type 2 diabetes mellitus without complications; Z87.891 Personal history of nicotine dependence; Z79.84 Long term (current) use of oral hypoglycemic drugs; Z79.899 Other long term (current) drug therapy
CPT/HCPCS: 64493; 64494; 64495; J2250; 99152

== ENCOUNTER → 2019-09-24 | Day surgery (SDC) | payer MEDICARE ==
[2019-09-19 15:11] VITALS: BMI 42.8
[~2019-09-24] MED LIST changes: -BUPIVACAINE (PF) 0.5% 30 ML VIAL ONE; +IV FLUID CONTINUATION 650 ML IV ONE; +LIDOCAINE 1% (10MG/ML) FOR IV START INTRADERMA PRN; +ROPIVACAINE 5MG/ML 20ML VIAL ONE; +fentaNYL (PF) 50 MCG/ML 2 ML AMP ONE; +methylPREDNISolone ACETATE 80 MG/ML 1 ML VIAL ONE
[2019-09-24 10:27] VITALS: RESP 18; TEMP 97.9
[2019-09-24 10:40] LABS: Glucose,Whole Blood 99 mg/dL (75-99)
--- NOTE | 2019-09-24 11:19 | P.PCN ---
Date of Procedure: 09/24/19 Procedure(s) Performed: PREOPERATIVE DIAGNOSIS : 1- Lumbar spondylosis with Facet Arthropathy without myelopathy . 2- Lumber degenerative disc disease. 3-FBSS lumbar area POSTOPERATIVE DIAGNOSIS: 1- Lumbar spondylosis with Facet Arthropathy without myelopathy . 2- Lumber degenerative disc disease. 3-FBSS lumbar area PROCEDURE: Diagnostic bilateral L3 , L4 , and L5 medial branch block under fluoroscopy guidance(fluoroscopy images available in the radiology Department ) ( To target the facet joint between L4-5 , and L5-S1 ) ANESTHESIA: Local with Ropivacain 0.5 % , moderate sedation with intravenous Versed 2 mg and Fentanyl 50 mcg. EBL: Minimal COMPLICATION: None. IV FLUIDS: 100 mL of normal saline. PROCEDURE INDICATION: Chronic low back pain secondary to Facet arthropathy unresponsive to conservative treatment. PROCEDURE DESCRIPTION: the patient was seen and identified in the preop holding area , risks and benefits and possible complications of the procedure and alternative were discussed with the patient, and the patient agreed to proceed with the procedure and signed the consent IV was started and vital signs monitored during the procedure and fluoroscopy was used to maximize the benefit and accuracy of the needle placement, and sedation was given to decrease patient anxiety, patient was taken to the procedure room and placed in prone position vital signs monitored in the back prepped with chlorhexidine X3 then under strict sterile technique using a right oblique fluoroscopy ,the junction of the transverse process and the superior articulating process of the right L3 , L4 , and L5 vertebra which corresponding to the fluoroscopy image of the eye of the Travis dog on the block side for the medial branches and subsequently , after local infiltration of skin and subcu tissuies with Ropivacaine 0.5 % , one mL at each level ,then 25-gauge Quincke-type needles , 3 needle was used , each one of them placed at the junction of the base of the transverse process and the superior articular process at the appropriate level, and the needle was advanced until the periosteum contacted, needle placement confirmed with AP oblique and lateral view and after appropriate needle placement confirmed, and after negative aspiration for heme and CSF and there was no paresthesia 1-1/2 mL of Ropivacaine 0.5% mixed with 20 mg Depo-Medrol , then half mL injected at each level after negative aspiration the needle subsequently removed and the same procedure repeated for the left side at left side at L3 , L4 and L5 levels. At the end of the procedure and the needles removed and a bandage applied after the skin was cleaned the cleaning solution patient taken to recovery room in stable condition and monitors in the recovery room for 20-30 minutes and discharged home in stable condition after discharge criteria met and patient will follow up with the pain clinic in 2-4 weeks
[2019-09-24 11:42] VITALS: BP 119/55; PULSE 58
--- NOTE | 2019-09-24 11:59 | FL ---
EXAMINATION TYPE: FL guided pain mgmt statistic DATE OF EXAM: 09/24/2019 CLINICAL HISTORY: Low back pain. TECHNIQUE: Fluoroscopy. COMPARISON: None. FINDINGS: Fluoroscopic guidance was provided during pain relief procedure performed by Dr. Aguayo . A total of 28 seconds of fluoroscopic time was utilized during the procedure and 4 spot images are acquired. Images acquired shows needle localization of the lumbar spine at multiple levels. IMPRESSION: As Above.
== END ==
LOC: ORPAIN 09:40
PROVIDERS: ATTEND Specialist
DX: G89.29 Other chronic pain (principal); M47.816 Spondylosis without myelopathy or radiculopathy, lumbar region; M51.36 Other intervertebral disc degeneration, lumbar region; M96.1 Postlaminectomy syndrome, not elsewhere classified; I10 Essential (primary) hypertension; Z88.1 Allergy status to other antibiotic agents; Z88.5 Allergy status to narcotic agent
CPT/HCPCS: 64493; 64494; J2250; J1040; J3010; J2795

== ENCOUNTER → 2019-09-25 | Outpatient (CLI) | payer MEDICARE ==
--- NOTE | 2019-09-25 13:22 | XR ---
EXAMINATION TYPE: XR chest 2V DATE OF EXAM: 09/25/2019 COMPARISON: 08/13/2016 HISTORY: Cough for one year TECHNIQUE: Frontal and lateral views of the chest are obtained. FINDINGS: There is no focal air space opacity, pleural effusion, or pneumothorax seen. The cardiac silhouette size is within normal limits. Flowing anterior osteophytes are seen of the thoracic spine suggesting diffuse idiopathic skeletal hyperostosis. IMPRESSION: No acute cardiopulmonary process. High-resolution chest CT could be considered for this patient with chronic cough to evaluate for interstitial lung disease.
== END | disposition home or self-care (01) ==
LOC: RADXRMAIN 12:56
PROVIDERS: ATTEND Family Medicine
DX: R05 Cough (principal)
CPT/HCPCS: 71046

== ENCOUNTER → 2019-10-10 | Outpatient (CLI) | payer MEDICARE ==
[2019-10-10 13:16] VITALS: BP 122/61; PULSE 60; RESP 18
--- NOTE | 2019-10-10 13:54 | P.PAINPG ---
Subjective Progress Note Date: 10/10/19 this is a follow-up visit for this 69 years old male with a chronic history of severe low back pain with radiation to the right lower extremity, he is diagnosed with radiculopathy, and failed back surgery syndrome , and lumbar spondylosis with lumbar facet arthropathy , status post diagnostic medial branch block lumbar area L3 , L4 , L 5 , he reported that his pain before the first diagnostic block was 6-7/10 dropped to 0 after the block , and the second diagnostic block his pain was 4-5 dropped to 0/10 after the block , currently patient complaining of severe low back pain across his back, he denies any change in the bowel movement or urination, he denies any motor or sensory deficits, he is able to ambulate without difficulty but any change in position especially hyperextension increases pain,patient continues to use naproxen 500 mg daily Tylenol when necessary Robaxin 500 mg twice a day and Lyrica 50 mg twice a day and he is getting prescription refills from his primary care, he denies any side effects of the medication he denies any excessive drowsiness and sleepiness, and heat for the current medication is helping to control his pain Objective - Vital Signs Vital signs: Vital Signs Temp Pulse 60 10/10/19 13:05 Resp 18 10/10/19 13:05 BP 122/61 10/10/19 13:05 Pulse Ox 98 10/10/19 13:05 - Exam -Constitutiona : Cooperative , not in acute distress . -HEENT : nech : supple , no Lymphadenopathy , normal thyroid size . : eyes : no ptosis , no icterus, no ph otophobia . : ENT : normal of hearing , normal oropharynx , no Thrush . - Respiratory : Chest clear to auscultations Bilaterally , no wheezing , no Rhonchi . - Cardiovascula : regular rate and rhythem , S1 , S2 , no S3 , no S4. - Gastrointestina : abdomen soft no tenderness , bowel sounds , no organomegally . - Genitourinary : Defferred . - neurologic : Cranial nerve II to XII intact , no focal neurological deffecit . -psychatric : alert , oriented X 3 , appropriate affect , intact judgment and insight . -Lymphatic : no Lymphadenopathy . - musculoskeltal : Lumber spine moter stegnth lower extremities ,thigh and legs 5/5 Right side , 5/5 Left side deep tendon reflexes : normal Knee Jerk , normal ankle Jerk lumber facet Loading Test =positive Right , positive Left Range of motion of the lumbar spine Flexion 30 degrees, extension 10 degrees strait leg raising test = positive at 60 degree Fabere test= positive Right , and positive LT . Sever tenderness over the Sacroiliac joint on the Right , and Left sides Assessment and Plan Plan: assessment and plan= 1-failed back surgery syndrome lumbar area. 2-lumbar radiculopathy. 3-lumbar spondylosis with lumbar facet arthropathy. Patient had a positive result after diagnostic medial branch block , he will be good candidate to have RFA of the medial branch L3, L4, L5 we will do the right side first Time with Patient: Less than 30 PQRS Measure Charge Sheet Measure #130: Documentation of Current Meds in Medical Chart: Patient's medications documented in chart Measure #226: Tobacco Use: Screen & Cessation Intervention: Pt not a tobacco user Measure #111: Pneumonia Vaccination: Pneumococcal vaccine NOT administered or previously given Measure #47: Advance Care Plan: Advance care planning discussed & documented, pt chose/unable to give Measure #412: Opioid Treatment Agreement: No documentation of signed opioid treatment agreement Measure #408: Opioid Therapy Follow-up Evaluation: Patient had NO f/u eval minimum every 3 months during opioid therapy Measure #317: Preventitive Care & Scrn High Bld Press & F/U: Normal blood pressure, f/u not required Measure #128: Body Mass Index (BMI) Screening & Follow-up: BMI documented ABOVE normal parameters - f/u documented Measure #131: Pain Assessment & Follow-up: Pain positive & plan documented, Follow-up scheduled Measure #431: Unhealthy Alcohol Use Preventative Care & Scrn: Patient not identified as an unhealthy alcohol user PQRS Narrative: Smoking Status Former smoker Blood Pressure 122/61 Pain Intensity [Lower Back] 2 Scale Used Numeric (1 - 10) Hx Alcohol Use (MH) Yes: RARE. Home Medications: Ambulatory Orders Atorvastatin [Lipitor] 20 mg PO HS 01/07/14 Methocarbamol [Robaxin] 500 mg PO BID 01/07/14 Multivitamin [Men's Multi-Vitamin] 1 tab PO DAILY 01/07/14 Pregabalin [Lyrica] 150 mg PO BID 01/07/14 metFORMIN HCL 1,000 mg PO BID 01/07/14 Fenofibric Acid (Choline) [Trilipix] 135 mg PO HS 04/05/14 Fluticasone Propionate [Flonase] 1 spray EA NOSTRIL HS 04/05/14 Tamsulosin HCl [Flomax] 0.4 mg PO DAILY 04/15/14 Finasteride [Proscar] 5 mg PO HS 02/25/16 Naproxen 500 mg PO DAILY 02/25/16 L.acidoph,Paracasei, B.lactis [Probiotic] 1 cap PO DAILY 05/06/16 Ferrous Sulfate [Iron (65 MG Elemental)] 325 mg PO FR 06/07/16 Ascorbic Acid [Vitamin C] 500 mg PO DAILY 09/28/16 Cholecalciferol [Vitamin D3] 1,000 unit PO DAILY 03/08/18 Lisinopril [Zestril] 10 mg PO DAILY 03/08/18 Magnesium Gluconate [Magonate] 500 mg PO DAILY 03/08/18 Melatonin 3 mg PO HS 03/08/18 Omeprazole 20 mg PO DAILY PRN 03/08/18 Liraglutide [Victoza 3-Tim] 1.8 mg SQ DAILY 03/27/19 Cetirizine HCl 10 mg PO HS 04/17/19 Acetaminophen [Tylenol Arthritis] 1,300 mg PO QAM PRN 06/21/19 Topiramate [Topamax] 25 mg PO DAILY 06/21/19 Icosapent Ethyl [Vascepa] 0.5 gm PO DAILY 08/13/19 Controlled Substance Measures - Controlled Substance Measures Is patient prescribed a controlled substance at discharge?: No
== END | disposition home or self-care (01) ==
LOC: PNWHC3 12:05
PROVIDERS: ATTEND Specialist
DX: M47.26 Other spondylosis with radiculopathy, lumbar region (principal); M96.1 Postlaminectomy syndrome, not elsewhere classified; Z87.891 Personal history of nicotine dependence; Z79.84 Long term (current) use of oral hypoglycemic drugs; Z79.51 Long term (current) use of inhaled steroids; Z79.1 Long term (current) use of non-steroidal anti-inflammatories (NSAID); Z79.890 Hormone replacement therapy; Z79.899 Other long term (current) drug therapy
CPT/HCPCS: 99211

== ENCOUNTER → 2019-12-21 | Outpatient (CLI) | payer MEDICARE | END | disposition home or self-care (01) | LOC: LABWHC1 09:31 | PROVIDERS: ATTEND Family Medicine | DX: Z11.59 Encounter for screening for other viral diseases (principal) | CPT/HCPCS: 87635 ==

== ENCOUNTER → 2019-12-25 | Day surgery (SDC) | payer MEDICARE ==
[2019-12-21 10:31] VITALS: BMI 42.8
[~2019-12-25] MED LIST changes: +IV FLUID CONTINUATION 500 ML IV ONE; -IV FLUID CONTINUATION 650 ML IV ONE; -LIDOCAINE 1% (10MG/ML) FOR IV START INTRADERMA PRN; +LIDOCAINE 4% (PF) 5 ML AMP ONE; -ROPIVACAINE 5MG/ML 20ML VIAL ONE; -fentaNYL (PF) 50 MCG/ML 2 ML AMP ONE; -methylPREDNISolone ACETATE 80 MG/ML 1 ML VIAL ONE
[2019-12-25 10:16] VITALS: RESP 16; TEMP 97
[2019-12-25 10:18] LABS: Glucose,Whole Blood 99 mg/dL (75-99)
--- NOTE | 2019-12-25 11:28 | P.PCN ---
Date of Procedure: 12/25/19 Procedure(s) Performed: PREOPERATIVE DIAGNOSIS: Lumbar Spondylosis POSTOPERATIVE DIAGNOSIS: Same PROCEDURES: Radiofrequency ablation of the L3, L4, L5 medial branches with fluoroscopic guidance on the right side SURGEON: Xenia Gamino MD. ANESTHESIA: Lidocaine 1% 5 mL, Moderate sedation with intravenous Versed, sedation time 23 minutes EBL: Minimal Fluoroscopy was used for the procedure and images were saved in the radiology portion of the chart. PROCEDURE INDICATION: The patient with low back pain secondary to lumbar facet arthropathy who had more than 50% relief of pain with previous diagnostic lumbar medial branch block X2. PROCEDURE DESCRIPTION / TECHNIQUE: The patient was seen and identified in the preoperative area. Risks, benefits, complications, including but not limited to risk of infection ,bleeding , allergic reactions to the medications and incomplete pain relief , and alternatives were discussed with the patient, the patient agreed to proceed with the procedure and signed the consent. IV was started. The operative site was marked. Patient was taken to the OR and time out was completed. The patient was placed in the prone position on the procedure table. The lumbar area was prepped and draped in the usual sterile fashion. . Vital signs were closely monitored during the procedure .IV sedation was used during the procedure to decrease patients anxiety. Using AP and then oblique fluoroscopy, the "eye of the Travis dog" corresponding to the connection between the superior and transverse articular processes of the L4 and L5 as well as the sacral ala were identified, marked, and localized with 1% lidocaine. Subsequently, an 18 guage 150 mm radiofrequency cannula with a 10-mm active tip was advanced guided by fluoroscopy to the identified target at each site. Needle positioning was confirmed on AP, oblique and lateral fluoroscopy. Motor testing at 2.5 Hz was done with paraspinal muscle stimulation only, and no radicular symptoms down the legs. Then 1 mL of 4% lidocaine was injected in each site. Radiofrequency thermocoagulation at 80 degrees celsius for 90 seconds was then performed. [place] were removed. Sterile dressings were applied. COMPLICATIONS: No acute complications. DISPOSITION / PLANS: The patient was placed in a supine position and transferred to the recovery area in a stable condition for observation and was discharged from the recovery room after meeting discharge criteria. Home discharge instructions given to the patient by the staff. The patient will follow up for left-sided procedure in 2 weeks.
[2019-12-25 11:51] VITALS: BP 123/75; PULSE 56
--- NOTE | 2019-12-25 12:11 | FL ---
Fluoroscopy HISTORY: Pain 10 seconds fluoroscopy time supplied to the referring clinician. 7 intraoperative C-arm images docum ent the procedure. See dictated report from anesthesia.
== END ==
LOC: ORPAIN 08:51
PROVIDERS: ATTEND Anesthesiology
DX: M47.816 Spondylosis without myelopathy or radiculopathy, lumbar region (principal); Z88.1 Allergy status to other antibiotic agents; Z88.5 Allergy status to narcotic agent
CPT/HCPCS: 64635; 64636; J2001; J2250; 99152; 99153

== ENCOUNTER → 2020-01-04 | Outpatient (CLI) | payer MEDICARE | END | disposition home or self-care (01) | LOC: LABWHC1 10:55 | PROVIDERS: ATTEND Family Medicine | DX: Z11.59 Encounter for screening for other viral diseases (principal) ==

== ENCOUNTER 2020-01-08 06:24 | Day surgery (SDC) | payer MEDICARE ==
[2020-01-04 16:12] VITALS: BMI 44.1
[2020-01-08] MEDS ORDERED: LACTATED RINGERS 1,000 ML IV SCH (06:45)
[2020-01-08 06:51] VITALS: RESP 16; TEMP 96.6
[2020-01-08 06:53] LABS: Glucose,Whole Blood 90 mg/dL (75-99)
[2020-01-08] MEDS ORDERED: LIDOCAINE 1% (10MG/ML) FOR IV START INTRADERMA ONE (06:53)
[2020-01-08] MEDS ORDERED: ROPIVACAINE 5MG/ML 20ML VIAL ONE (06:56)
[2020-01-08] MEDS ORDERED: TRIAMCINOLONE ACETONIDE 40 MG/ML 1 ML VIAL ONE (06:56)
[2020-01-08] MEDS ORDERED: MIDAZOLAM 2 MG/2 ML VIAL ONE (06:56)
[2020-01-08] MEDS ORDERED: LIDOCAINE 1% INJ 10MG/ML (20 ML MDV) ONE (06:56)
[2020-01-08] MEDS ORDERED: IV FLUID CONTINUATION 1,000 ML IV ONE (07:31)
[2020-01-08] MEDS ORDERED: LACTATED RINGERS 1,000 ML IV ONE (07:31)
[2020-01-08 07:36] VITALS: PULSE 61
[2020-01-08 07:45] VITALS: BP 122/73
--- NOTE | 2020-01-08 07:58 | P.PCN ---
Date of Procedure: 01/08/20 Description of Procedure: PREOPERATIVE DIAGNOSIS: Lumbar Spondylosis POSTOPERATIVE DIAGNOSIS: Same PROCEDURES: Radiofrequency ablation of the L3, L4, L5 medial branches with fluoroscopic guidance on the LEFT side (L4-5 and L5-S1 Facet Joints) SURGEON: Raza Mayo MD. ANESTHESIA: Lidocaine 1% 5 mL, Moderate Conscious sedation with IV Versed 2mg. EBL: Minimal Fluoroscopy was used for the procedure and images were saved in the radiology portion of the chart. PROCEDURE INDICATION: The patient with low back pain secondary to lumbar facet arthropathy who had more than 50% relief of pain with previous diagnostic lumbar medial branch block X2. Patient had excellent relief with right sided RF A completed 2 weeks ago. PROCEDURE DESCRIPTION / TECHNIQUE: The patient was seen and identified in the preoperative area. Risks, benefits, complications, including but not limited to risk of infection ,bleeding , allergic reactions to the medications and incomplete pain relief , and alternatives were discussed with the patient, the patient agreed to proceed with the procedure and signed the consent. IV was started. The operative site was marked. Patient was taken to the OR and time out was completed. The patient was placed in the prone position on the procedure table. The lumbar area was prepped and draped in the usual sterile fashion. Vital signs were closely monitored during the procedure .IV sedation was used during the procedure to decrease patients anxiety. Using AP and then oblique fluoroscopy, the "eye of the Travis dog" corresponding to the connection between the superior and transverse articular processes of the L4 and L5 as well as the sacral ala were identified, marked, and localized with 10ml 1% lidocaine and 0.5% Ropivacaine. Subsequently, an 18 guage 150 mm radiofrequency cannula with a 10-mm active tip was advanced guided by fluoroscopy to the identified target at each site. Needle positioning was confirmed on AP, oblique and lateral fluoroscopy. Motor testing at 2.5 Hz was done with paraspinal muscle stimulation only, and no radicular symptoms down the legs. Then 1 mL of 2% lidocaine was injected in each site. Radiofrequency thermocoagulation at 80 degrees celsius for 90 seconds was then performed. Irv[place] were repositioned and a second burn was performed. After ablation a solution of 4ml 1% lidocaine with 40mg Kenalog was evenly injected at the 3 needle sites. Irv[place] were removed. Sterile dressings were applied. COMPLICATIONS: No acute complications. DISPOSITION / PLANS: The patient was placed in a supine position and transferred to the recovery area in a stable condition for observation and was discharged from the recovery room after meeting discharge criteria. Home discharge instructions given to the patient by the staff. The patient will follow up in clinic in 4 weeks.
[2020-01-08 08:01] LABS: Glucose,Whole Blood 94 mg/dL (75-99)
--- NOTE | 2020-01-08 08:22 | FL ---
EXAMINATION TYPE: FL guided pain mgmt statistic DATE OF EXAM: 01/08/2020 CLINICAL HISTORY: Low back pain. TECHNIQUE: Fluoroscopy. COMPARISON: None. FINDINGS: Fluoroscopic guidance was provided during pain relief procedure performed by Dr. Mayo. A total of 18 seconds of fluoroscopic time was utilized during the procedure and 5 spot images are ac quired. Images acquired shows needle localization at multiple levels of the lumbar spine. IMPRESSION: As Above.
== END 2020-01-08 08:00 | disposition home or self-care (01) ==
LOC: ORPAIN 06:24
PROVIDERS: ATTEND Anesthesiology
DX: M47.816 Spondylosis without myelopathy or radiculopathy, lumbar region (principal); E11.9 Type 2 diabetes mellitus without complications; Z88.5 Allergy status to narcotic agent; Z88.1 Allergy status to other antibiotic agents
CPT/HCPCS: 64635; 64636; J2250; J3301; J2001; J2795; 99152; 99153

== ENCOUNTER → 2020-02-06 | Outpatient (CLI) | payer MEDICARE ==
--- NOTE | 2020-02-06 12:34 | P.PAINPG ---
Subjective Progress Note Date: 02/06/20 this is a follow-up visit for this 69 years old male with a chronic history of severe low back pain with radiation to the right lower extremity, he is diagnosed with radiculopathy, and failed back surgery syndrome , and lumbar spondylosis with lumbar facet arthropathy , status post a frequency thermocoag ulation of the medial branch lumbar area, which was done recently patient reported that his low back pain and lower extremity pain improved significantly, but he continued to have some pain in the buttock area bilaterally, he denies any change in the bowel movement or urination, he denies any motor or sensory deficits, he is able to ambulate without difficulty but any change in position especially hyperextension increases pain,patient continues to use naproxen 500 mg daily Tylenol when necessary Robaxin 500 mg twice a day and Lyrica 50 mg twice a day and he is getting prescription refills from his primary care, he denies any side effects of the medication he denies any excessive drowsiness and sleepiness, and he reported that the current medication is helping to control his pain. Objective - Vital Signs Vital signs: Intake & Output 02/05/20 02/06/20 02/06/20 18:59 06:59 18:59 Weight 128.367 kg - Exam Physical Examinations : -Constitutiona : Cooperative , not in acute distress . -HEENT : nech : supple , no Lymphadenopathy , normal thyroid size . : eyes : no ptosis , no icterus, no photophobia . - neurologic : Cranial nerve II to XII intact , no focal neurological deffecit . -psychatric : alert , oriented X 3 , appropriate affect , intact judgment and insight . -Lymphatic : no Lymphadenopathy . - musculoskeltal : Lumber spine moter stegnth lower extremities ,thigh and legs 5/5 Right side , 5/5 Left side . Sever tenderness over the Sacroiliac joint on the Right , and Left sides Gaenslen test= positive right ,and positive left . Seated flexion test= positive right ,and positive Left . Assessment and Plan Plan: assessment and plan= 1-failed back surgery syndrome lumbar area. 2-lumbar radiculopathy. 3-lumbar spondylosis with lumbar facet arthropathy. 4-bilateral sacroiliitis Patient could benefit from bilateral sacroiliac joint steroid injections under fluoroscopy guidance, procedure risk and benefits and alternatives discussed with the patient he agreed with the preceding Time with Patient: Less than 30 PQRS Measure Charge Sheet Measure #130: Documentation of Current Meds in Medical Chart: Patient's medications documented in chart Measure #226: Tobacco Use: Screen & Cessation Intervention: Pt not a tobacco user Measure #111: Pneumonia Vaccination: Pneumococcal vaccine NOT administered or previously given Measure #47: Advance Care Plan: Advance care planning discussed & documented, pt chose/unable to give Measure #412: Opioid Treatment Agreement: No documentation of signed opioid treatment agreement Measure #408: Opioid Therapy Follow-up Evaluation: Patient had NO f/u eval minimum every 3 months during opioid therapy Measure #317: Preventitive Care & Scrn High Bld Press & F/U: Normal blood pressure, f/u not required Measure #128: Body Mass Index (BMI) Screening & Follow-up: BMI documented ABOVE normal parameters - f/u documented Measure #131: Pain Assessment & Follow-up: Pain positive & plan documented, Follow-up scheduled Measure #431: Unhealthy Alcohol Use Preventative Care & Scrn: Patient not identified as an unhealthy alcohol user PQRS Narrative: Smoking Status Former smoker Pain Intensity [Lower Back] 3 Scale Used Numeric (1 - 10) Hx Alcohol Use (MH) Yes: RARE. Home Medications: Ambulatory Orders Atorvastatin [Lipitor] 20 mg PO HS 01/07/14 Methocarbamol [Robaxin] 500 mg PO BID 01/07/14 Multivitamin [Men's Multi-Vitamin] 1 tab PO DAILY 01/07/14 Pregabalin [Lyrica] 150 mg PO BID 01/07/14 metFORMIN HCL 1,000 mg PO BID 01/07/14 Fenofibric Acid (Choline) [Trilipix] 135 mg PO HS 04/05/14 Fluticasone Propionate [Flonase] 1 spray EA NOSTRIL HS 04/05/14 Tamsulosin HCl [Flomax] 0.4 mg PO DAILY 04/15/14 Finasteride [Proscar] 5 mg PO HS 02/25/16 Naproxen 500 mg PO DAILY 02/25/16 L.acidoph,Paracasei, B.lactis [Probiotic] 1 cap PO DAILY 05/06/16 Ferrous Sulfate [Iron (65 MG Elemental)] 325 mg PO FR 06/07/16 Ascorbic Acid [Vitamin C] 500 mg PO DAILY 09/28/16 Cholecalciferol [Vitamin D3] 1,000 unit PO DAILY 03/08/18 Lisinopril [Zestril] 10 mg PO DAILY 03/08/18 Magnesium Gluconate [Magonate] 500 mg PO DAILY 03/08/18 Melatonin 5 mg PO HS 03/08/18 Omeprazole 20 mg PO DAILY PRN 03/08/18 Liraglutide [Victoza 3-Tim] 1.8 mg SQ DAILY 03/27/19 Cetirizine HCl 10 mg PO HS 04/17/19 Acetaminophen [Tylenol Arthritis] 1,300 mg PO QAM PRN 06/21/19 Topiramate [Topamax] 25 mg PO DAILY 06/21/19 Icosapent Ethyl [Vascepa] 4 cap PO DAILY 08/13/19 Controlled Substance Measures - Controlled Substance Measures Is patient prescribed a controlled substance at discharge?: No
== END | disposition home or self-care (01) ==
LOC: PNWHC3 12:46
PROVIDERS: ATTEND Specialist
DX: M96.1 Postlaminectomy syndrome, not elsewhere classified (principal); M47.26 Other spondylosis with radiculopathy, lumbar region; M46.96 Unspecified inflammatory spondylopathy, lumbar region; M46.1 Sacroiliitis, not elsewhere classified; Z87.891 Personal history of nicotine dependence; Z79.891 Long term (current) use of opiate analgesic; Z79.899 Other long term (current) drug therapy; Z79.84 Long term (current) use of oral hypoglycemic drugs
CPT/HCPCS: 99211

== ENCOUNTER 2020-03-04 06:01 | Day surgery (SDC) | payer MEDICARE ==
[2020-02-28 13:41] VITALS: BMI 43.4
[~2020-03-04 06:01] MED LIST changes: -IV FLUID CONTINUATION 500 ML IV ONE; -LIDOCAINE 4% (PF) 5 ML AMP ONE; -MIDAZOLAM 2 MG/2 ML VIAL ONE
[2020-03-04 06:28] VITALS: TEMP 97.6
[2020-03-04] MEDS: LACTATED RINGERS 1,000 ML IV SCH ×2 (06:35→06:54)
[2020-03-04 06:38] LABS: Glucose,Whole Blood 72 mg/dL (75-99)
[2020-03-04] MEDS ORDERED: IOPAMIDOL M200 10 ML VIAL ONE (06:54)
[2020-03-04] MEDS ORDERED: ROPIVACAINE 5MG/ML 20ML VIAL ONE (06:54)
[2020-03-04] MEDS ORDERED: MIDAZOLAM 2 MG/2 ML VIAL ONE (06:54)
[2020-03-04] MEDS ORDERED: TRIAMCINOLONE ACETONIDE 40 MG/ML 1 ML VIAL ONE (06:54)
--- NOTE | 2020-03-04 07:16 | P.PCN ---
Date of Procedure: 03/04/20 Preoperative Diagnosis: sacroiliac joint dysfunction Postoperative Diagnosis: sacroiliac joint dysfunction Procedure(s) Performed: bilateral sacroiliac joint dysfunction Anesthesia: MAC, local Surgeon: Medhat Adler Condition: stable Disposition: same day Description of Procedure: Preoperative diagnoses: bilateral sacroilitis Postoperative diagnoses: bilateral sacroilitis. Procedure: bilateral sacroiliac joint steroid injection under fluoroscopic guidance. Surgeon: Medhat Adler MD Anesthesia: 2 mL of 1% lidocaine and moderate sedation per hospital guidelines sedation time 13 min Fluoroscopy was used for the procedure and fluoroscopic images were saved to the radiology portion of the patient's chart. EBL: None Procedure indication: The patient had a history of severe chronic low back pain, diagnosed with sacroiliitis unresponsive to conservative treatment. Procedure description: The patient was seen and identified in the preoperative holding area, risks and benefits and alternative of the procedure and possible complications discussed with the patient, and patient agreed with the preceding, patient signed the consent, an IV was started, and vital signs were monitored and were stable throughout the procedure, patient was placed in the prone position on table and the lumbosacral area was prepped and draped with a sterile fashion, vital signs were closely monitored during the procedure, the fluoroscopy camera was placed in the contralateral oblique view on the bilateral sacroiliac joint and the lower part of the joint was identified . Then the skin and subcutaneous tissue was anesthetized using 2 mL of 1% lidocaine then a 22- gauge Quincke-type spinal needle advanced slowly under fluoroscopy and placed in the posterior and inferior border of the right sacroiliac joint, placement confirmed with AP and lateral view, and after appropriate needle placement confirmed and after negative aspiration for heme, 1 mL of Isovue 200 was injected revealing intra-articular spread. Then a solution consisting of 2 ml of ropivacaine 0.5% and 20 mg of Kenalog injected after negative aspiration, no paresthesia during the injection, no resistance to injection, and the needle was removed. The procedure was then repeated on the left side. Total of 40 mg of Kenalog was used for the procedure. Patient tolerated the procedure well without any complication. The patient was returned to supine position after the back was cleaned and a Band-Aid applied, the patient was transported to recovery room in stable condition and monitored for 30 minutes before being discharged home. The patient will follow up with the pain clinic in a few weeks
[2020-03-04] MEDS ORDERED: IV FLUID CONTINUATION 1,000 ML IV ONE (07:19)
[2020-03-04 07:42] VITALS: BP 137/63; PULSE 58; RESP 16
--- NOTE | 2020-03-04 08:50 | FL ---
Fluoroscopy History: [facility] PA[employer] MANAG[employer] DR. UNDERWOOD SUPERVISED USE OF C-ARM FOR A R[place] SI JOINT PAIN CASE FL TIME 0.09 MINS
== END 2020-03-04 07:54 | disposition home or self-care (01) ==
LOC: ORPAIN 06:01
PROVIDERS: ATTEND Anesthesiology
DX: G89.29 Other chronic pain (principal); M53.3 Sacrococcygeal disorders, not elsewhere classified; M46.1 Sacroiliitis, not elsewhere classified; Z88.5 Allergy status to narcotic agent
CPT/HCPCS: J2250; J3301; Q9966; J2795; G0260; 99152

== ENCOUNTER 2020-03-25 07:19 | Day surgery (SDC) | payer MEDICARE ==
[2020-03-19 09:13] VITALS: BMI 43.3
[2020-03-25 07:40] VITALS: RESP 16; TEMP 97.6
[2020-03-25] MEDS ORDERED: LIDOCAINE 1% (10MG/ML) FOR IV START INTRADERMA ONE (08:00)
[2020-03-25 08:03] LABS: Glucose,Whole Blood 98 mg/dL (75-99)
[2020-03-25] MEDS ORDERED: ROPIVACAINE 5MG/ML 20ML VIAL ONE (08:47)
[2020-03-25] MEDS ORDERED: TRIAMCINOLONE ACETONIDE 40 MG/ML 1 ML VIAL ONE (08:47)
[2020-03-25] MEDS ORDERED: fentaNYL (PF) 50 MCG/ML 2 ML AMP ONE (08:47)
[2020-03-25] MEDS ORDERED: MIDAZOLAM 2 MG/2 ML VIAL ONE (08:47)
--- NOTE | 2020-03-25 09:06 | P.PCN ---
Date of Procedure: 03/25/20 Procedure(s) Performed: Procedure= bilateral sacroiliac joints steroid injection under fluoroscopy guidance (fluoroscopy image stored on file in the radiology Department ) Preoperative diagnosis= 1-bilateral sacroiliitis 2-lumbar degenerative disc disease 3-lumbar spondylosis with facet arthropathy Postoperative diagnosis=Same as preop Diagnosis . Complication = none Condition= stable Anesthesia= moderate sedation with intravenous Versed 1 mg , and fentanyl 100 micrograms . Indication for the procedure= patient complaining of low back pain , examination was positive for severe tenderness over the sacroiliac joints bilaterally and patient diagnosed with sacroiliitis, for this reason he was good candidate for sacroiliac joint steroid injection. Description of the procedure= procedure risk and benefits discussed with the patient, including but not limited, risk of infection and bleeding, and ALLERGIC reaction to the medication and not complete pain relief and patient agreed with the preceding patient taken to the operating room, placed in prone position or standard monitors applied to the patient then after induction of anesthesia back prepped with chlorhexidine 3 times , Then under strict sterile technique, first I did the right sacroiliac joint the which was identified under fluoroscopy guidance been local infiltration of the skin and subcu interstitial with lidocaine 1% then 22-gauge Quincke Needle advanced slowly under fluoroscopy and placed in the right sacroiliac joint needle placement confirmed with AP and oblique and lateral view and after appropriate needle placement confirmed and after negative aspiration, or heme , then Ropivacaine 0.5% 3 mL, and 20 mg of Kenalog mixed together and injected in the right sacroiliac joint after negative aspiration patient tolerated the procedure well without any complication. Then the left sacroiliac joint steroid injection done under strict sterile technique local infiltration of the skin and subcu interstitial at the location of the left sacroiliac joint then a 22-gauge Quincke Needle advanced slowly under fluoroscopy time placed in the left sacroiliac joint, needle placement confirmed with AP and oblique and lateral view then after appropriate needle placement confirmed and after negative aspiration 0.5% Marcaine 3 mL and 20 mg of Kenalog injected in the left sacroiliac joint after negative aspiration patient tolerated the procedure well that any complications and she will follow up in clinic 3 weeks
[2020-03-25] MEDS ORDERED: IV FLUID CONTINUATION 500 ML IV ONE (09:08)
[2020-03-25 09:20] VITALS: PULSE 55
[2020-03-25 09:26] VITALS: BP 134/64
--- NOTE | 2020-03-25 09:49 | FL ---
Fluoroscopy History: RICO SI JOINTS RICO SI JOINT INJECTION 9 SEC FL TIME USED
== END 2020-03-25 09:43 | disposition home or self-care (01) ==
LOC: ORPAIN 07:19
PROVIDERS: ATTEND Specialist
DX: M46.1 Sacroiliitis, not elsewhere classified (principal); M51.36 Other intervertebral disc degeneration, lumbar region; M47.816 Spondylosis without myelopathy or radiculopathy, lumbar region; I10 Essential (primary) hypertension; Z88.1 Allergy status to other antibiotic agents; Z88.5 Allergy status to narcotic agent
CPT/HCPCS: 99152

== ENCOUNTER → 2020-05-07 | Outpatient (CLI) | payer MEDICARE ==
[2020-05-07 10:42] VITALS: BP 146/74; PULSE 67; RESP 18; TEMP 98.2
--- NOTE | 2020-05-08 19:33 | P.PAINPG ---
Subjective Progress Note Date: 05/07/20 this is a follow-up visit for this 69 years old male with a chronic history of severe low back pain with radiation to the right lower extremity, he is diagnosed with radiculopathy, and failed back surgery syndrome , and lumbar spondylosis with lumbar facet arthropathy , status post bilateral sacroiliac j oint steroid injection x2 patient gets excellent relief after each injection his VAS was 7-8/10 dropped to 2/10 after the bilateral sacroiliac joint steroid injection, and he gets similar result after the second sacroiliac joint injection, previously we have done radiofrequency thermocoagulation of the medial branch lumbar area, but he continued to have some pain in the buttock area bilaterally, he denies any change in the bowel movement or urination, he denies any motor or sensory deficits, he is able to ambulate without difficulty but any change in position especially hyperextension increases pain,patient continues to use naproxen 500 mg daily Tylenol when necessary Robaxin 500 mg twice a day and Lyrica 150 mg twice a day and he is getting prescription refills from his primary care, he denies any side effects of the medication he denies any excessive drowsiness and sleepiness, and he reported that the current medication is helping to control his pain. Objective - Vital Signs Vital signs: Vital Signs Temp 98.2 F 05/07/20 10:36 Pulse 67 05/07/20 10:36 Resp 18 05/07/20 10:36 BP 146/74 05/07/20 10:36 Pulse Ox 98 05/07/20 10:36 - Exam -Constitutiona : Cooperative , not in acute distress . -HEENT : nech : supple , no Lymphadenopathy , normal thyroid size . : eyes : no ptosis , no icterus, no photophobia . - neurologic : Cranial nerve II to XII intact , no focal neurological deffecit . -psychatric : alert , oriented X 3 , appropriate affect , intact judgment and insight . -Lymphatic : no Lymphadenopathy . - musculoskeltal : Lumber spine moter stegnth lower extremities ,thigh and legs 5/5 Right side , 5/5 Left side . Sever tenderness over the Sacroiliac joint on the Right , and Left sides Gaenslen test= positive right ,and positive left . Seated flexion test= positive right ,and positive Left . Assessment and Plan Plan: assessment and plan= 1-failed back surgery syndrome lumbar area. 2-lumbar radiculopathy. 3-lumbar spondylosis with lumbar facet arthropathy. 4-bilateral sacroiliitis, patient had excellent relief after bilateral sacroiliac joint steroid injection Patient could benefit from RFA of the sacroiliac joint (RFA of the L5-S1 dorsal dramas and RFA of the lateral branches of S1-S2 and S3) Will do the right side first Time with Patient: Less than 30 PQRS Measure Charge Sheet Measure #130: Documentation of Current Meds in Medical Chart: Patient's medications documented in chart Measure #226: Tobacco Use: Screen & Cessation Intervention: Pt not a tobacco user Measure #111: Pneumonia Vaccination: Pneumococcal vaccine administered or p reviously received Measure #47: Advance Care Plan: Advance care planning discussed & documented, pt chose/unable to give Measure #412: Opioid Treatment Agreement: No documentation of signed opioid treatment agreement Measure #408: Opioid Therapy Follow-up Evaluation: Patient had NO f/u eval minimum every 3 months during opioid therapy Measure #317: Preventitive Care & Scrn High Bld Press & F/U: Pre-hypertensive or hypertensive BP documented, pt will f/u with PCP Measure #128: Body Mass Index (BMI) Screening & Follow-up: BMI documented ABOVE normal parameters - f/u documented Measure #131: Pain Assessment & Follow-up: Pain positive & plan documented, Follow-up scheduled Measure #431: Unhealthy Alcohol Use Preventative Care & Scrn: Patient not identified as an unhealthy alcohol user PQRS Narrative: Smoking Status Former smoker Blood Pressure 146/74 Pain Intensity [Lower Back] 5 Scale Used Numeric (1 - 10) Hx Alcohol Use (MH) Yes: RARE. Home Medications: Ambulatory Orders Atorvastatin [Lipitor] 20 mg PO HS 01/07/14 Multivitamin [Men's Multi-Vitamin] 1 tab PO DAILY 01/07/14 Pregabalin [Lyrica] 150 mg PO BID 01/07/14 metFORMIN HCL 1,000 mg PO BID 01/07/14 methocarbamoL [Robaxin] 500 mg PO BID 01/07/14 Fenofibric Acid (Choline) [Trilipix] 135 mg PO HS 04/05/14 Fluticasone Propionate [Flonase] 1 spray EA NOSTRIL HS 04/05/14 Tamsulosin HCl [Flomax] 0.4 mg PO DAILY 04/15/14 Finasteride [Proscar] 5 mg PO HS 02/25/16 Naproxen 500 mg PO DAILY 02/25/16 L.acidoph,Paracasei, B.lactis [Probiotic] 1 cap PO DAILY 05/06/16 Ferrous Sulfate [Iron (65 MG Elemental)] 325 mg PO FR 06/07/16 Ascorbic Acid [Vitamin C] 500 mg PO DAILY 09/28/16 Magnesium Gluconate [Magonate] 500 mg PO DAILY 03/08/18 Melatonin 5 mg PO HS 03/08/18 Omeprazole 20 mg PO DAILY PRN 03/08/18 lisinopriL [Zestril] 10 mg PO DAILY 03/08/18 Liraglutide [Victoza 3-Tim] 1.8 mg SQ DAILY 03/27/19 Cetirizine HCl 10 mg PO HS 04/17/19 Acetaminophen [Tylenol Arthritis] 650 mg PO QAM PRN 06/21/19 Topiramate [Topamax] 25 mg PO DAILY 06/21/19 Icosapent Ethyl [Vascepa] 4 cap PO DAILY 08/13/19 Ergocalciferol [Vitamin D2 (DRISDOL)] 50,000 unit PO PIZARRO 05/01/20 Controlled Substance Measures - Controlled Substance Measures Is patient prescribed a controlled substance at discharge?: No
== END | disposition home or self-care (01) ==
LOC: PNWHC3 10:04
PROVIDERS: ATTEND Specialist
DX: M96.1 Postlaminectomy syndrome, not elsewhere classified (principal); M47.26 Other spondylosis with radiculopathy, lumbar region; M46.96 Unspecified inflammatory spondylopathy, lumbar region; Z87.891 Personal history of nicotine dependence; Z79.84 Long term (current) use of oral hypoglycemic drugs; Z79.891 Long term (current) use of opiate analgesic; Z79.899 Other long term (current) drug therapy
CPT/HCPCS: 99211

== ENCOUNTER 2020-05-29 06:50 | Day surgery (SDC) | payer MEDICARE ==
[2020-05-27 14:05] VITALS: BMI 41.6
[2020-05-29] MEDS ORDERED: LACTATED RINGERS 1,000 ML IV SCH (07:02)
[2020-05-29 07:21] LABS: Glucose,Whole Blood 88 mg/dL (75-99)
[2020-05-29 07:22] VITALS: TEMP 98
[2020-05-29] MEDS ORDERED: MIDAZOLAM 2 MG/2 ML VIAL ONE (07:42)
[2020-05-29] MEDS ORDERED: fentaNYL (PF) 50 MCG/ML 2 ML AMP ONE (07:42)
[2020-05-29] MEDS ORDERED: LIDOCAINE 1% INJ 10MG/ML (20 ML MDV) ONE (07:42)
[2020-05-29] MEDS ORDERED: ROPIVACAINE 5MG/ML 20ML VIAL ONE (07:42)
--- NOTE | 2020-05-29 08:03 | P.PCN ---
Date of Procedure: 05/29/20 Description of Procedure: PREOPERATIVE DIAGNOSIS: 1. Lumbosacral Spondylosis 2. sacroiliitis. POSTOPERATIVE DIAGNOSIS: 1-Lumbosacral spondylosis 2- sacroiliitis. Imaging: Fluoroscopy was used, images where saved to the medical record PROCEDURES: 1. Right radiofrequency thermocoagulation/ablation of the L5 dorsal ramus. 2. Right multi-site radiofrequency thermocoagulation/ablation of the S1, S2, and S3 lateral branchs. The procedure was performed using fluoroscopic guidance during needle placement to assure proper position and maximize safety. ANESTHESIA: Local anesthesia with IV sedation using Fentanyl and Versed 1 mg of Versed and 50 g of fentanyl INDICATION/MEDICAL NECESSITY: History of low back pain secondary left Lumbosacral Spondylosis and lumbosacral arthropathy unresponsive to more conservative treatments. The patient reported more than 50% relief of pain symptoms following 2 previous diagnostic blocks with Bupivacaine. PROCEDURE DESCRIPTION: The patient was seen and identified in the preoperative area. Risks, benefits, complications, and alternatives were discussed with the patient. The patient agreed to proceed with the procedure and signed the consent. Vital signs were checked before and after the procedure and they remained stable. The patient was placed in the prone position on the procedure table and a pillow was placed under the abdomen to reduce lumbar lordosis. The lumbosacral area was prepped and draped in the usual sterile fashion. Critical pause was taken. L5 Dorsal Ramus RF: Using oblique fluoroscopy, the junction of the transverse process and the superior articular process of the left S1 vertebra, which correspond to the fluoroscopic image of the "eye of the Travis dog" was identified. Subsequently, a 10-cm 20-gauge radiofrequency cannula with a 10-mm active tip was advanced under fluoroscopic guidance until contact was made with periosteum. At this level, the Sensory testing of the L5 dorsal ramus was performed at 50 Hz and 0 to 1 volt with production of concordant pain starting at 0.5 volt. Motor stimulation was done at 2 Hz with stimulation of mulitifidus muscle contration at 1.5 volts. No radicular symptoms or paresthesias were produced during the testing. Subsequently, the L5 dorsal ramus was subjected to a radiofrequency ablation at a mode of 90 seconds at 80 degrees Celsius after negative motor and sensory testing and after injecting with a solution consisting of 0.5% ropivacaine was injected. S1, S3, and S3 Lateral Branch RF: The lateral margins of the left S1, S2, and S3 foramina were identified using AP fluoroscopy. Under fluoroscopic guidance, three 10-cm 20-gauge radiofrequency cannula with a 10-mm active tip were inserted at 8-10 mm peripheral to the posterior S1 foramen, at various locations using clock-face coordinates. The center of the clock was registered at the lateral margin of the foramen. The 2:30, 4:00, and 5:30 oclock positions were used. At this level, the sensory testing of the S1 lateral branch was performed at 50 Hz and 0 to 1 volt at the three levels with production of concordant pain starting at 0.5 volt. Motor stimulation was done at 2 Hz. No radicular symptoms or paresthesias were produced during the testing. Subsequently, the S1 lateral branch was subjected to a radiofrequency ablation at a mode of 90 seconds at 80 degrees Celsius at the 3 levels after negative motor and sensory testing and after injecting a solution consisting of 0.5% ropivacaine 1 ml injected in each cannula. The same procedure was performed at the level of the S2 foramen. For the S3 foramen, only the 2:30 and 4:00 oclock positions were used. Sensory and motor testing followed by radiofrequency ablation were performed as described for the S1 and S2 foramina. The needle was withdrawn intact after each injection. COMPLICATIONS: The patient tolerated the procedure well without any acute complications. DISPOSTION/PLAN: The patient was taken to the recovery area after the procedure in a stable condition for observation. Patient was reexamined prior to discharge. Patient was observed for 30 minutes in the recovery area and was discharged home, accompanied by an adult, after meeting discharged criteria. Discharge instructions were give to the patient by the staff. Patient was specifically instructed not to drive today and to rest for the rest of the day. Patient will follow up as scheduled in the clinic.
[2020-05-29] MEDS ORDERED: IV FLUID CONTINUATION 1,000 ML IV ONE (08:09)
[2020-05-29 08:47] VITALS: BP 105/65; PULSE 65; RESP 18
--- NOTE | 2020-05-29 10:53 | FL ---
Fluoroscopy HISTORY: Pain 7 seconds fluoroscopy time supplied to the referring clinician. 3 intraoperative C-arm images docume nt the procedure. See dictated report from anesthesia.
== END 2020-05-29 08:55 | disposition home or self-care (01) ==
LOC: ORPAIN 06:50
PROVIDERS: ATTEND Hospitalist
DX: M47.817 Spondylosis without myelopathy or radiculopathy, lumbosacral region (principal); M46.1 Sacroiliitis, not elsewhere classified; E11.9 Type 2 diabetes mellitus without complications; Z88.1 Allergy status to other antibiotic agents; Z88.5 Allergy status to narcotic agent; Z88.0 Allergy status to penicillin
CPT/HCPCS: 64625; J2250; J2001; J3010; J2795; 64640; 99152

== ENCOUNTER → 2020-06-25 | Outpatient (CLI) | payer MEDICARE ==
[2020-06-25 12:37] VITALS: BP 116/79; PULSE 58; RESP 18; TEMP 98
--- NOTE | 2020-06-25 13:02 | P.PN ---
Subjective Progress Note Date: 06/25/20 This is a follow-up visit for this 70 years old male with a chronic history of severe low back pain with radiation to the right lower extremity, he is diagnosed with radiculopathy, and failed back surgery syndrome , and lumbar spondylosis with lumbar facet arthropathy ,sacroiliitis ,previousley we have d one bilateral sacroiliac joint steroid injection x2 patient gets excellent relief after each injection his VAS was 7-8/10 dropped to 2/10 after the bilateral sacroiliac joint steroid injection, and he gets similar result after the second sacroiliac joint injection, and recently we did RFA of the right sacroiliac joint , currently is complaining of severe low back pain with radiation from the left side to the left buttock area ,also previously we have done radiofrequency thermocoagulation of the medial branch lumbar area, but he continued to have some pain in the buttock area bilaterally, he denies any change in the bowel movement or urination, he denies any motor or sensory deficits, he is able to ambulate without difficulty but any change in position especially hyperextension increases pain,patient continues to use naproxen 500 mg daily Tylenol when necessary Robaxin 500 mg twice a day and Lyrica 150 mg twice a day and he is getting prescription refills from his primary care, he denies any side effects of the medication he denies any excessive drowsiness and sleepiness, and he reported that the current medication is helping to control his pain. Objective - Vital Signs Vital signs: Vital Signs Temp 98 F 06/25/20 12:36 Pulse 58 L 06/25/20 12:36 Resp 18 06/25/20 12:36 BP 116/79 06/25/20 12:36 Pulse Ox 96 06/25/20 12:36 - Exam -Constitutiona : Cooperative , not in acute distress . -HEENT : nech : supple , no Lymphadenopathy , normal thyroid size . : eyes : no ptosis , no icterus, no photophobia . - neurologic : Cranial nerve II to XII intact , no focal neurological deffecit . -psychatric : alert , oriented X 3 , appropriate affect , intact judgment and insight . -Lymphatic : no Lymphadenopathy . - musculoskeltal : Lumber spine moter stegnth lower extremities ,thigh and legs 5/5 Right side , 5/5 Left side . Sever tenderness over the Sacroiliac joint on the Right , and Left sides Gaenslen test= positive right ,and positive left . Seated flexion test= positive right ,and positive Left . Assessment and Plan Plan: assessment and plan= 1-failed back surgery syndrome lumbar area. 2-lumbar radiculopathy. 3-lumbar spondylosis with lumbar facet arthropathy. 4-bilateral sacroiliitis, patient had excellent relief after bilateral sacroiliac joint steroid injection Patient could benefit from RFA of the Left sacr oiliac joint (RFA of the L5-S1 dorsal dramas ,RFA of the lateral branches of S1- S2 and S3) Time with Patient: Less than 30 PQRS Measure Charge Sheet Measure #130: Documentation of Current Meds in Medical Chart: Patient's medications documented in chart Measure #226: Tobacco Use: Screen & Cessation Intervention: Pt not a tobacco user Measure #111: Pneumonia Vaccination: Pneumococcal vaccine administered or previously received Measure #47: Advance Care Plan: Advance care planning discussed & documented, pt chose/unable to give Measure #412: Opioid Treatment Agreement: No documentation of signed opioid treatment agreement Measure #408: Opioid Therapy Follow-up Evaluation: Patient had NO f/u eval minimum every 3 months during opioid therapy Measure #317: Preventitive Care & Scrn High Bld Press & F/U: 116/79 BP documented, pt will f/u with PCP Measure #128: Body Mass Index (BMI) Screening & Follow-up: BMI documented ABOVE normal parameters - f/u documented Measure #131: Pain Assessment & Follow-up: Pain positive & plan documented, Follow-up scheduled Measure #431: Unhealthy Alcohol Use Preventative Care & Scrn: Patient not identified as an unhealthy alcohol user PQRS Narrative: Time with Patient: Less than 30
== END | disposition home or self-care (01) ==
LOC: PNWHC3 12:18
PROVIDERS: ATTEND Specialist
DX: M96.1 Postlaminectomy syndrome, not elsewhere classified (principal); M47.26 Other spondylosis with radiculopathy, lumbar region; M46.1 Sacroiliitis, not elsewhere classified
CPT/HCPCS: 99211